=== PATIENT | male | born 1940 | race Caucasian/White ===

== ENCOUNTER 2017-08-10 10:18 | Inpatient (IN) | payer MEDICARE ==
[2017-08-10] MEDS ORDERED: Atropine Sulfate 1 mg/10 ml Syringe ONE ×3 (10:25→10:49)
--- NOTE | 2017-08-10 10:44 | RAD ---
PORTABLE CHEST 1 VIEW: Date: 08/10/17 Time: 1035 hours HISTORY: Chest pain and symptomatic bradycardia. FINDINGS: The heart size is normal. The aorta is tortuous. The lungs are well expanded without lobar consolidat ion, pneumothoraces, or pleural effusions. IMPRESSION: No acute process. POS: OFF
[2017-08-10 10:48] LABS: Hemoglobin 14.3 g/dL (14.0-18.0); Mean Corpuscular HGB CONC 32.1 g/dL (32.0-36.0); Mean Corpuscular Hemoglobin 31.5 pg (27.0-31.0); Mean Corpuscular Volume 97.9 fL (78.0-98.0); Mean Platelet Volume 8.2 fL (7.4-10.4); Platelet Count 271 thou/uL (130-400); RBC Distribution Width 13.3 % (11.5-14.5); Red Blood Cell (RBC) Count 4.55 mill/uL (4.70-6.10); White Blood Cell (WBC) Count 15.1 thou/uL (4.8-10.8)
[2017-08-10] MEDS ORDERED: DOPamine 400 MG/D5W 250 ML 250 ML ONE (11:05)
[2017-08-10 11:06] LABS: ALT (SGPT) 50 U/L (8-55); AST (SGOT) 28 U/L (5-34); Albumin 4.2 g/dL (3.4-4.8); Alkaline Phosphatase 51 U/L (40-150); Anion Gap 13 mmol/L (10-20); BUN (Urea Nitrogen) 65 mg/dL (8.4-25.7); Bilirubin, Total 0.6 mg/dL (0.2-1.2); CK (CPK) 32 U/L (30-200); Calc. Creatinine Clearance 0 mL/min (70-130); Calcium 10.7 mg/dL (7.8-10.44); Carbon Dioxide 23 mmol/L (23-31); Chloride 105 mmol/L (98-107); Estimated GFR-MDRD 19; Globulin 2.7 g/dL (2.4-3.5); Glucose 130 mg/dL (83-110); Lipase 49 U/L (8-78); Magnesium 2.2 mg/dL (1.6-2.6); Potassium 5.9 mmol/L (3.5-5.1); Protein, Total 6.9 g/dL (5.8-8.1); Sodium 135 mmol/L (136-145)
[2017-08-10 11:09] LABS: CKMB 1.8 ng/mL (0-6.6)
[2017-08-10 11:12] LABS: Burr Cells SLIGHT = 2-5 cells (100X) (0-1/hpf); Lymphocytes 52 % (21-51); MDiff Complete? YES; Monocytes 4 % (0-10); Neutrophil 42 % (42-75); PLT Morphology Comment Appears Adequate; Reactive Lymphocytes 1 % (0-10)
--- NOTE | 2017-08-10 12:10 | CON ---
DATE OF CONSULTATION: 08/10/2017 This is a critical care note, time will be 90 minutes. HISTORY OF PRESENT ILLNESS: The patient is a pleasant 77-year-old gentleman with a history of atrial fibrillation who presented with marked weakness. The patient states that previous about 6 years ago, he underwent a cardiac catheterization and found to have no significant coronary artery disease. He is followed by a cardiovascular lab director in [place], [place]. The patient most recently was diagnosed with atrial fibrillation. He was started on amiodarone. The patient also treated with Eliquis. The patient had recently noticed having increasing weakness and he was admitted for further evaluation. The patient denies have any loss of consciousness. The patient denies having any chest pain or dyspnea. PAST MEDICAL HISTORY: 1. Atrial fibrillation. 2. Diabetes mellitus. 3. Hypertension. 4. Chronic renal insufficiency. 5. History of pancreatic carcinoma. 6. Diabetes mellitus. PAST SURGICAL HISTORY: Whipple surgery, pancreatic surgery, and a tonsillectomy. SOCIAL HISTORY: He is a nonsmoker. FAMILY HISTORY: There is no strong family history of heart disease. ALLERGIES: No known drug allergies. MEDICATIONS: Eliquis 5 b.i.d., lisinopril 10 daily and half bedtime, Toprol 25 XL daily, simvastatin 20 at bedtime, alprazolam, Xanax 1 tablet p.o. p.r.n., metformin 500 mg b.i.d., and Imdur 30 q.a.m. REVIEW OF SYSTEMS: Ten-point system otherwise unremarkable. No history of easy bruising or bleeding. PHYSICAL EXAMINATION: GENERAL: This is a thin gentleman in no acute distress. VITAL SIGNS: His blood pressure was 140/70, heart rate was 40. NECK: Showed no jugular distention, no carotid bruits. LUNGS: Clear to auscultation. HEART: Regular rate and rhythm, normal S1, S2, no murmurs. ABDOMEN: Nondistended. EXTREMITIES: Showed trace edema. LABORATORY DATA AND IMAGING DATA: His white blood cell count 15.1, hemoglobin 14.3, hematocrit 46.6, and platelets are 271. Sodium is 135, potassium 5.9, chloride 105, bicarbonate 23, BUN 65, creatinine 3.16, glucose 130. Troponin was 0.02. His EKG revealed marked bradycardia with heart rate less than 40. IMPRESSION: 1. Symptomatic bradycardia. 2. Paroxysmal atrial fibrillation. 3. Hypertension. 4. Diabetes. 5. Chronic renal insufficiency. PLAN: This gentleman presents with marked bradycardia. We will ask EP to evaluate whether he should have placement of electronic pacemaker. The patient will be taken off his beta delaney and amiodarone. Further recommendations, we will follow. MALID
[2017-08-10] MEDS: Sodium Chloride 0.9% 1,000 ML IV SCH (13:35)
[2017-08-10] MEDS ORDERED: DOPamine 400 MG/D5W 250 ML 250 ML IVPB SCH (13:40)
[2017-08-10] MEDS ORDERED: Zolpidem Tartrate 5 MG TAB PO PRN (13:40)
[2017-08-10] MEDS ORDERED: Artificial Tear Sol 15 ML BOT EA EYE PRN (13:40)
[2017-08-10] MEDS ORDERED: hydrALAZINE 20 MG/ML VIAL SLOW IVP PRN ×2 (13:40→13:58)
[2017-08-10] MEDS ORDERED: Acetaminophen 325 MG TAB PO PRN (13:40)
[2017-08-10] MEDS ORDERED: Nitroglycerin 0.4 MG TAB (25 Tab Bottle) SL PRN (13:40)
[2017-08-10] MEDS ORDERED: Eucerin (Mineral Oil/Petrolatum,White) 30 gm Jar TOP PRN (13:40)
[2017-08-10] MEDS ORDERED: Diabetic Tussin 200 MG/10 ML UDCUP PO PRN (13:40)
[2017-08-10] MEDS ORDERED: Dextrose 50% Abboject 50 ML SYRINGE SLOW IVP PRN (13:40)
[2017-08-10] MEDS ORDERED: Dextrose 5% in Water 1,000 ML IV PRN (13:40)
[2017-08-10] MEDS ORDERED: Mag-Al 1200 mg/1200 mg/30 ML UDCUP PO PRN (13:40)
[2017-08-10] MEDS ORDERED: Ondansetron HCl/PF 4 MG/2 ML Vial IVP PRN (13:40)
[2017-08-10] MEDS ORDERED: HYDROcodone/Acetaminophen 5/325 mg Tablet PO PRN (13:40)
[2017-08-10] MEDS ORDERED: Loratadine 10 MG TAB PO PRN (13:40)
[2017-08-10] MEDS ORDERED: Chloraseptic Spray 180 ml Bottle PO PRN (13:40)
[2017-08-10] MEDS ORDERED: HumaLOG 300 UNITS/3 ML VIAL SC PRN ×2 (13:40)
[2017-08-10] MEDS ORDERED: Loperamide HCl 2 MG CAP PO PRN (13:40)
[2017-08-10] MEDS ORDERED: Senokot 8.6 MG TAB PO PRN (13:40)
[2017-08-10] MEDS ORDERED: Sodium Chloride 0.65% Nasal 44 ML BOT EA NARE PRN (13:40)
[2017-08-10 14:13] LABS: Troponin I Less than 0.010 ng/mL (< 0.028)
[2017-08-10] MEDS: hydrALAZINE 20 MG/ML VIAL SLOW IVP SCH ×2 (14:35→21:05)
--- NOTE | 2017-08-10 15:28 | ULT ---
RENAL SONOGRAM: HISTORY: Renal failure. FINDINGS: Right kidney is 10.9 cm with multiple cysts, measuring up to 1.8 cm near the inferior pole. No hydro nephrosis. Left kidney is 9.8 cm. Cyst at the inferior pole is exophytic, measuring 5.7 cm. Urinary bladder is incompletely distended. IMPRESSION: 1. No evidence of urinary tract obstruction. 2. Bilateral renal cysts. POS: [facility]
[2017-08-10 15:37] VITALS: BMI 22.7
--- NOTE | 2017-08-10 17:05 | PRG ---
DATE OF SERVICE: 08/10/2017 SUBJECTIVE: Mr. Brownlee is a 77-year-old male who presented to the hospital with weakness. He was fo und to be bradycardic. He is on amiodarone and Toprol for atrial fibrillation. He has been anticoag ulated with Eliquis. He has been admitted because of bradycardia. He was placed on dopamine in the emergency department. PAST MEDICAL HISTORY: Remarkable for atrial fibrillation, diabetes, hypertension, chronic kidney dis ease, and history of pancreas cancer. PAST MEDICAL HISTORY: He has had a Whipple procedure and tonsillectomy. SOCIAL HISTORY: He is nonsmoker and nondrinker. ALLERGIES: He has no drug allergies. FAMILY HISTORY: No family history of lung disease in early age. MEDICATIONS: Prior to admission he was on 10 lisinopril, 25 Toprol, 5 of Eliquis twice a day, simvas tatin 20 mg, metformin 500 mg twice a day and Imdur 30 mg a day, as well as amiodarone. REVIEW OF SYSTEMS: Ten-point review of systems is otherwise negative. PHYSICAL EXAMINATION: VITAL SIGNS: Blood pressure 161/63, heart rate 63, respiratory rate is 23, oximetry is 98%. HEENT: Pupils are equal. Sclerae is anicteric. He has skin tag on his right eyelid, he says it has been there for a long time. This does not have a malignant appearance. NECK: Supple. LUNGS: Clear. HEART: Regular rhythm. ABDOMEN: Soft. EXTREMITIES: Without asymmetry. LABORATORY DATA: White count 15.1, hemoglobin 14.3, platelets 271. Sodium 135, potassium 5.9, chlor yulia 105, bicarb 23, BUN 65, creatinine 3.16. We do not have any old renal lab for comparison. IMPRESSION: 1. Bradycardia. 2. Chronic kidney disease, most likely with borderline hyperkalemia. This will need to be monitored . 3. Hypercalcemia with calcium 10.7 and elevated parathyroid hormone. Nephrology will need to be consulted. An ultrasound has already been done which does not show anythi ng but bilateral renal cysts. There is no evidence of ureteral obstruction. He will remain in the Critical Care Unit for now. This is a 70-minute consult. Greater than 50% of the time was spent in coordinating care.
--- NOTE | 2017-08-10 17:09 | CON ---
ELECTROPHYSIOLOGY CONSULTATION DATE OF CONSULTATION: 08/10/2017 Paula Reeves, Nurse Practitioner dictating as scribe for Dr. Jefe Pretty. REFERRING PHYSICIAN: Ronan Quijano M.D. REASON FOR CONSULTATION: Symptomatic bradycardia. HISTORY OF PRESENT ILLNESS: Mr. Brownlee is a very pleasant 77-year-old gentleman who presents to the emergency room for marked weakness. He reports that he has been experiencing some shortness of breat h and weakness that has been progressive over the past few weeks. He was recently diagnosed with atr ial fibrillation in 02/2017 and was started on amiodarone and Eliquis by a corporate safety director in [place], [place]. He denies any bleeding problems while on Eliquis and feels he has been tolerating the amioda kerline without complication. He does have fairly complicated past medical history. He has been on low dose beta delaney for years. He denies any passing out or near passing out despite his progressive weakness. He denies any heart racing, chest pain, pressure, stroke or stroke-like symptoms. He has had occasional palpitations that are brief and fairly infrequent. He has been admitted on a dopamine drip while further evaluation is completed. His is at bedside during the exam. Currently, he feels well and does not have any cardiac concerns or complaints. He does report that his blood press ure was low when he arrived in the emergency room since his blood pressure has come up. He feels sig nificantly better. The patient reports having Multaq left heart catheterization approximately 6 years ago, but no interv ention was performed and has been medically managed. REVIEW OF SYSTEMS: Twelve point review of systems was conducted and is unremarkable except that list ed above in the HPI. PAST MEDICAL HISTORY: 1. Atrial fibrillation diagnosed in 02/2017. 2. Diabetes mellitus. 3. Hypertension. 4. Chronic renal insufficiency. 5. Renal cysts, bilateral. 6. History of pancreatic cancer in 2007, now in remission. PAST SURGICAL HISTORY: 1. Whipple Surgery. 2. Pancreatic surgery. 3. Tonsillectomy. SOCIAL HISTORY: Negative for tobacco or illicit drugs, , lives with his spouse. FAMILY HISTORY: Negative for early onset coronary artery disease or sudden cardiac . ALLERGIES: No known allergies. HOME MEDICATIONS: Include Eliquis 5 mg b.i.d., lisinopril 10 mg q.a.m. and 5 mg q.p.m., Toprol-XL 25 mg daily, simvastatin 10 mg at bedtime, alprazolam 1 mg p.o. as needed, metformin 500 mg b.i.d., and Imdur 30 mg q.a.m. PHYSICAL EXAMINATION: VITAL SIGNS: Most recent blood pressure 160/87, heart rate is 47, afebrile, oxygen saturation 99% on room air, and respirations are 14. GENERAL: This is a well-groomed, well-appearing gentleman in no apparent distress. He is alert and oriented. His speech is clear and affect appropriate. HEENT: He is normocephalic, atraumatic. His sclerae are anicteric. Oral mucosa is moist and pink w ith adequate dentition. NECK: Supple without jugular venous distention. His thyroid is nonpalpable. LUNGS: Clear to auscultation bilaterally without wheezes, crackles or rhonchi. Respirations are lulu n and unlabored with good bilateral excursion. HEART: Rate is regularly regular but slow. PMI is nondisplaced. EXTREMITIES: Warm and dry to touch without clubbing, cyanosis or edema. ABDOMEN: Soft, nontender without palpable masses. There are positive bowel sounds noted throughout. Hepatojugular reflex is negative. NEUROLOGIC: Grossly intact. Cranial nerves II-XII and exam is nonfocal. Gait was not assessed. LABORATORY DATA: WBC 15.1, hemoglobin 14.3, hematocrit 44.3, and platelet count is 271. Chemistry: Sodium 135, potassium 5.9, BUN 65, creatinine 3.16, magnesium 2.2. BNP 136.9. Chest x-ray, no acut e cardiopulmonary processes. Telemetry and EKG reveals sinus bradycardia. IMPRESSION: 1. Symptomatic bradycardia in the setting of concurrent amiodarone and beta-delaney therapy. 2. Atrial fibrillation. 3. Elevated CHADS VASc score of 4 on the basis of advanced age, hypertension, and diabetes, currentl y on Eliquis. 4. Chronic kidney disease and hyperkalemia. RECOMMENDATIONS: Discussion was had with Kem and his regarding his symptomatic bradycardia a nd hypertension. He is currently on low dose dopamine drips that is infusing between 3 and 5 mcg. T here is some issue with hypertension while on the dopamine drip. At this point, he is asymptomatic a nd his heart rates sustaining in the 40s. Once he remains asymptomatic, this is certainly reasonable without causing further hypertension. We recommend p.r.n. hydralazine use for hypertension while on dopamine. Regarding his bradycardia, his amiodarone was started in February according to the patient and his . He is now experiencing symptomatic bradycardia. We stopped the amiodarone and his be ta blockers. We will continue to monitor over the weekend and allowed his medications to wash out. If he continues to have symptomatic episodes or issues with bradycardia over the weekend, a permanent pacemaker may be indicated. Unfortunately, he does not have many options for antiarrhythmic therapy given his past medical history. Multaq had been considered in the past, but financially was not fea sible. We discussed coming off amiodarone and the likelihood of recurrence of his arrhythmias. He w ill likely require continued amiodarone therapy and therefore a permanent pacemaker maybe needed to p revent recurrent bradycardia episodes. Alternatively a lower dose of amiodarone may be effective sup pressing his arrhythmias and likely without his metoprolol. We will keep him n.p.o. on Sunday for po ssible dual chamber pacemaker implant. All questions were answered. The risks associated with the p acemaker include pain, swelling, bruising, infection, damage to the lung, damage to the heart and pos sible need for invasive CV Surgery. The patient and his voiced understanding and agree with the current plan of care. Thank you for allowing us to participate in the care of this patient.
[2017-08-10 17:15] LABS: Troponin I Less than 0.010 ng/mL (< 0.028)
[2017-08-10 17:25] LABS: Anion Gap 12 mmol/L (10-20); BUN (Urea Nitrogen) 63 mg/dL (8.4-25.7); Calc. Creatinine Clearance 22 mL/min (70-130); Calcium 10.4 mg/dL (7.8-10.44); Carbon Dioxide 22 mmol/L (23-31); Chloride 105 mmol/L (98-107); Estimated GFR-MDRD 21; Glucose 214 mg/dL (83-110); Potassium 5.3 mmol/L (3.5-5.1); Sodium 134 mmol/L (136-145)
--- NOTE | 2017-08-10 18:52 | HP ---
PRIMARY CARE PHYSICIAN: Dr. Ledbetter. REASON FOR ADMISSION: Symptomatic bradycardia, hyperkalemia, acute/chronic kidney failure. HISTORY OF PRESENT ILLNESS: A 77-year-old male who was sent to the emergency room by primary care physician for chest pain. Patient reports that for last 2- 3 weeks, he was intermittently feeling dizziness, lightheadedness, and shortness of breath on exertion. He was also experiencing randomly chest pain. He had a couple of times chest pain on exertion. Yesterday, he was feeling pressure sensation in his chest along with palpitation, dizziness, and chest pain subsequently subsided. The patient brought new blood pressure medicine and they checked vitals and they found pulse was low and that is why they made appointment with primary care physician and at primary care physician's office, the patient's pulse was very low and that is why he was advised to go to the emergency room. Patient was feeling dizzy, weak, fatigue and when primary care physician checked his pulse at that time it was 35 and when he arrived to emergency room, his pulse was in 20s. He was given atropine and subsequently dopamine drip and his heart rate improved from 60 to 70s. His blood pressure remained stable. He never had any syncopal episode or loss of consciousness. He never had any fall. Patient has history of heart problem. He is following synthetic resin operator in [place]. As per report, the patient is taking Eliquis, metoprolol and amiodarone. He had several cardiac catheterizations and stent placed. He also has underlying history of pancreatic cancer. He denies any smoking. He denies any alcohol abuse. He denies any other illicit drug abuse. He reports constipation, but he denies any melena, hematochezia. He denies any UTI symptoms. He denies any headache or focal motor or sensory symptoms. Dr. Quijano, synthetic resin operator evaluated this patient in the emergency room, the patient got echocardiography in the ER and subsequently Dr. Quijano advised to admit this patient in CCU. PAST MEDICAL HISTORY: Diabetes type 2, hypertension, chronic kidney disease, baseline status not known, history of cyst on kidney, pancreatic cancer, coronary artery disease, chronic anticoagulation, unspecified arrhythmia. PAST SURGICAL HISTORY: Pancreatic cancer surgery, tonsillectomy, cardiac catheterization with stent placement. PAST PSYCHIATRIC HISTORY: Anxiety and depression. SOCIAL HISTORY: Patient is . He drinks few beers per day. He denies any smoking. He denies any other illicit drug abuse. FAMILY HISTORY: No strong family history of premature coronary artery disease, stroke or cancer. ALLERGIES: No known drug allergy. CURRENT HOME MEDICATIONS: Toprol XL 25 mg p.o. daily, metformin b.i.d., Eliquis 5 mg p.o. b.i.d., amiodarone daily. EMERGENCY ROOM COURSE: Patient is given dopamine drip, atropine 0.5 mg x2. REVIEW OF SYSTEMS: The following complete review of systems was negative, unless otherwise mentioned in the HPI or below: Constitutional: Weight loss or gain, ability to conduct usual activities. Skin: Rash, itching. Eyes: Double vision, pain. ENT/Mouth: Nose bleeding, neck stiffness, pain, tenderness. Cardiovascular: Palpitations, dyspnea on exertion, orthopnea. Respiratory: Shortness of breath, wheezing, cough, hemoptysis, fever or night sweats. Gastrointestinal: Poor appetite, abdominal pain, heartburn, nausea, vomiting, constipation, or diarrhea. Genitourinary: Urgency, frequency, dysuria, nocturia. Musculoskeletal: Pain, swelling. Neurologic/Psychiatric: Anxiety, depression. Allergy/Immunologic: Skin rash, bleeding tendency. Please see my HPI for pertinent positive and negative. All other review of systems reviewed and negative except as mentioned in the HPI. PHYSICAL EXAMINATION: VITAL SIGNS: At this point, blood pressure 143/54, pulse 67, respiratory rate 14, temperature 97.5, saturation 99% on room air, lowest pulse was recorded 28. GENERAL: Patient is currently alert, awake, no obvious acute distress. HEENT: Head: Normocephalic, atraumatic. Eyes: Pupils round, reactive to light. Extraocular muscle intact. ENT: Oropharynx within normal limits. Moist mucous membranes. No oral lesion, no pharyngeal erythema, no exudate. NECK: Supple, no JVD, no thyromegaly, no carotid bruit, no jugular venous distention. LUNGS: Clear to auscultation without any rhonchi or rales. CARDIAC: Currently S1, S2 regular. No murmur, no gallop, no rub. ABDOMEN: Soft, bowel sounds present, nontender, nondistended. No organomegaly , no mass, no suprapubic tenderness. BACK: Unremarkable, no CVA tenderness. EXTREMITIES: Upper extremity, passive movement of all joints are normal. Lower extremity, no edema. Good peripheral pulsation. SKIN: No skin rash. HEMATOLOGICAL: No lymphadenopathy. PSYCHIATRIC: Normal affect. SIGNIFICANT LABORATORY DATA AND IMAGING: Chest x-ray based on my review, no acute cardiopulmonary process. CBC: WBC 15.1, hemoglobin 14.3, platelet 271. BMP: Sodium 135, potassium 5.9, chloride 105, carbon dioxide 23, anion gap 13, BUN 65, creatinine 3.16, glucose 130, calcium 10.7, magnesium 2.2. LFT: AST 28 , ALT 50, alkaline phosphatase 51, albumin 4.2, lipase 49, CK-MB 1.8, troponin I 0.022, BNP 136.9. ASSESSMENT AND PLAN: 1. Symptomatic bradycardia. Patient's pulse was 35 at primary care physician' s office, 28 at emergency room. He required atropine 0.5 mg x2 and dopamine drip, most likely related with his home medication Toprol and amiodarone, associated sinus node dysfunction cannot be entirely excluded, but at this point we will wait for medication to clear up and we will closely monitor in CCU and we will continue dopamine drip. Cardiology will be consulted. Echocardiography obtained and we will follow up on that result. Cardiac enzymes will be done to rule out acute coronary syndrome. 2. Hyperkalemia, likely related with renal insufficiency. We will give him Kayexalate one dose, calcium chloride, sodium bicarbonate and glucose insulin as a cocktail treatment for hyperkalemia. 3. Acute/chronic kidney failure. We will obtain renal ultrasound. We will check urine sodium, urine creatinine, and protein. We will consult Nephrology. We will avoid nephrotoxin agent. 4. Chronic anticoagulation with Eliquis. At this point, because of renal insufficiency, we will reduce the dose of Eliquis. We will check PT/INR. 5. Hypertension. We will use hydralazine on p.r.n. basis. We will hold on Toprol-XL, instead we will control his blood pressure with Procardia-XL 30 mg p.o. daily. We will monitor hemodynamics closely. 6. Elevated BNP. We will obtain echocardiography to assess ejection fraction and other structural abnormality. 7. Deep venous thrombosis prophylaxis, heparin 5000 units subcu twice daily. 8. Gastrointestinal prophylaxis, Protonix 40 mg p.o. daily. 9. Diabetes type 2. We will continue with insulin as per sliding scale per protocol. Diabetic diet will be given. We will discontinue metformin because of renal insufficiency. CODE STATUS: The patient is FULL CODE. The patient's is surrogate decision maker. Disposition plan based on clinical course. We are expecting patient's stay in hospital more than 2 midnights. Plan of care discussed with the patient and family member. ACE
--- NOTE | 2017-08-10 19:29 | CON ---
DATE OF CONSULTATION: 08/10/2017 NEPHROLOGY CONSULTATION REASON FOR CONSULTATION: Elevated creatinine. HISTORY OF PRESENT ILLNESS: This is a very pleasant 77-year-old gentleman who presented from the Car diology office after he was hypotensive and bradycardic. The patient's creatinine had increased to 3 .1 from a prior baseline in the ones. The patient denied no headache, numbness, tingling or weakness or chest pain at this time. The patient was also noted to have a potassium of 5.9. PAST MEDICAL HISTORY: Atrial fibrillation, diabetes mellitus, hypertension, CKD, bilateral renal cys t, pancreatic cancer. PAST SURGICAL HISTORY: Significant for Whipple surgery, pancreatic surgery, tonsillectomy. SOCIAL HISTORY: No alcohol or drug use. FAMILY HISTORY: Reviewed. ALLERGIES: Reviewed. HOME MEDICATIONS: Reviewed. HOSPITAL MEDICATIONS: Reviewed. PHYSICAL EXAMINATION: GENERAL: Patient is awake, alert. VITAL SIGNS: Afebrile, pulse 77, breathing 16, blood pressure 160/87. OBJECTIVE: See above. HEAD/NECK: Normocephalic. Atraumatic. EYES: EOMI. No deformity. EARS: Clear. No ulcers. NOSE: Intact. No lesions. MOUTH: Clear. No discharge. THROAT: Clear. No exudate. LUNGS: Clear. No crackles. CARDIAC: S1, S2. No rub. ABDOMEN: Benign. BS+. GENITALIA/RECTUM: Junior absent. BACK/EXTREMITIES: Edema 0+ Ulcer- NEUROLOGICAL: Alert and motor intact. SKIN: Rash- Bruise- LYMPHATICS: Edema- Ulcer- LABORATORY DATA: Show potassium 5.3. ASSESSMENT AND RECOMMENDATIONS: 1. Acute kidney injury with chronic kidney disease, most likely due to decreased effective arterial blood volume. Continue hydration. 2. Anemia, stable. 3. Hyperkalemia. Stop lisinopril and agree with hydration. No urgent indication for dialysis. We will hydrate the patient gently and follow renal function closely. Risks versus benefits of treatmen t were discussed. I will follow the renal imaging.
[2017-08-10 20:15] LABS: Bilirubin Negative (Negative); Blood, Urine Negative (Negative); Clarity CLEAR (Clear); Glucose, Urine (Dipstick) 250 mg/dL (Negative); Leukocyte Negative (Negative); Nitrite Negative (Negative); Protein, Urine (Dipstick) Negative (Neg-Trace); Specific Gravity, Urine 1.015 (1.002-1.036); Urobilinogen 0.2 mg/dL (0.2-1.0)
[2017-08-10 20:20] LABS: Bacteria/HPF None Seen HPF (None Seen); Hyaline Casts/LPF 0-3 HYALINE CAST LPF (0-3 Hyaline); Pathc Cast-AUWi Flag 0.29 (0-2.49); RBC/HPF 0-3 HPF (0-3); Squamous Epithelial None Seen HPF (0-3); WBC/HPF None Seen HPF (0-3)
[2017-08-10] MEDS: Heparin 5,000 UNITS/ML VIAL SC SCH (21:05)
[2017-08-10] MEDS: Ondansetron ODT 4 MG TAB PO PRN (21:19)
[2017-08-10 23:08] LABS: Creatinine, Urine 82.87 mg/dL (63-166)
[2017-08-11 05:32] LABS: ALT (SGPT) 41 U/L (8-55); AST (SGOT) 23 U/L (5-34); Alkaline Phosphatase 55 U/L (40-150); Anion Gap 15 mmol/L (10-20); BUN (Urea Nitrogen) 60 mg/dL (8.4-25.7); Bilirubin, Total 0.6 mg/dL (0.2-1.2); Calc. Creatinine Clearance 26 mL/min (70-130); Calcium 10.3 mg/dL (7.8-10.44); Carbon Dioxide 18 mmol/L (23-31); Cardiac Risk 3.8 (Less than 4.5); Chloride 107 mmol/L (98-107); Cholesterol 162 mg/dl (< 200 Desired); Estimated GFR-MDRD 26; Globulin 2.7 g/dL (2.4-3.5); Glucose 177 mg/dL (83-110); HDL Cholesterol 43 mg/dL (>60 Neg Risk); LDL Cholesterol, Calculated 87 mg/dL; Potassium 5.7 mmol/L (3.5-5.1); Protein, Total 6.7 g/dL (5.8-8.1); Sodium 134 mmol/L (136-145); Triglycerides 162 mg/dL (Less than 150)
[2017-08-11 06:14] LABS: #Basophils 0.3 thou/uL (0.0-0.2); #Eosinphils 0.1 thou/uL (0.0-0.7); #Lymphocytes 3.5 thou/uL (1.20-3.40); #Monocytes 1.1 thou/uL (0.11-0.59); %Basophils 1.6 % (0.0-1.0); %Eosinophils 0.4 % (0.0-10.0); %Lymphocytes 20.7 % (21.0-51.0); %Monocytes 6.5 % (0.0-10.0); %Neutrophils 70.9 % (42.0-75.0); Acanthocytes SLIGHT = 1-5 cells (100X) (None Seen); Hemoglobin 14.7 g/dL (14.0-18.0); MDiff Complete? YES; Mean Corpuscular HGB CONC 31.5 g/dL (32.0-36.0); Mean Corpuscular Hemoglobin 30.2 pg (27.0-31.0); Mean Platelet Volume 8.6 fL (7.4-10.4); PLT Morphology Comment Appears Adequate; Platelet Count 284 thou/uL (130-400); RBC Distribution Width 13.3 % (11.5-14.5); Red Blood Cell (RBC) Count 4.88 mill/uL (4.70-6.10)
[2017-08-11] MEDS: Sodium Chloride 0.9% 1,000 ML IV SCH ×3 (06:19→23:00)
[2017-08-11] MEDS: Ondansetron ODT 4 MG TAB PO PRN (08:34)
[2017-08-11] MEDS: Heparin 5,000 UNITS/ML VIAL SC SCH ×2 (08:34→21:54)
[2017-08-11] MEDS: hydrALAZINE 20 MG/ML VIAL SLOW IVP SCH (09:42)
[2017-08-11] MEDS ORDERED: Sodium Bicarb 50 MEQ/50 ML Abboject 8.4% SYRINGE IVP SCH (10:45)
[2017-08-11] MEDS ORDERED: Isoproterenol 2 MG in Dextrose 5% in Water 500 ML IVPB SCH (12:15)
--- NOTE | 2017-08-11 12:29 | PDOC.PN ---
- Subjective Encounter Start Date: 08/11/17 Encounter Start Time: 09:40 Patient seen and examined. No new complaints. No overnight events - Objective Resuscitation Status: Resuscitation Status FULL:Full Resuscitation MAR Reviewed: Yes Vital Signs & Weight: Vital Signs (12 hours) Temp Pulse Resp Pulse Ox 08/11/17 09:42 47 L 08/11/17 08:00 98.4 F 47 L 12 97 08/11/17 06:02 97 08/11/17 04:00 98.6 F Weight Weight 158 lb 4.67 oz Most Recent Monitor Data Heart Rate from ECG 46 NIBP 159/59 NIBP BP-Mean 104 Respiration from ECG 7 SpO2 96 I&O: 08/10/17 08/11/17 08/12/17 06:59 06:59 06:59 Intake Total 1699 Output Total 1000 Balance 699 Result Diagrams: 08/11/17 04:36 08/11/17 04:36 Additional Labs: Accuchecks 08/11/17 08/11/17 08/10/17 11:59 08:40 21:06 POC Glucose 165 H 147 H 173 H 08/10/17 16:30 POC Glucose 185 H Radiology Reviewed by me: Yes (echo - normal) EKG Reviewed by me: Yes (bradycardia) Phys Exam - Physical Examination Constitutional: NAD HEENT: PERRLA, moist MMs, sclera anicteric Neck: no JVD, supple Respiratory: no wheezing, no rales, no rhonchi Cardiovascular: RRR, no significant murmur, no rub Gastrointestinal: soft, non-tender, no distention, positive bowel sounds Musculoskeletal: no edema, pulses present Neurological: non-focal, normal sensation Lymphatic: no nodes Psychiatric: normal affect, A&O x 3 Skin: no rash, normal turgor Dx/Plan (1) Symptomatic bradycardia Code(s): R00.1 - BRADYCARDIA, UNSPECIFIED Status: Acute (2) Hyperkalemia Code(s): E87.5 - HYPERKALEMIA Status: Acute (3) Acute on chronic kidney failure Code(s): N17.9 - ACUTE KIDNEY FAILURE, UNSPECIFIED; N18.9 - CHRONIC KIDNEY DISEASE, UNSPECIFIED Status: Acute Qualifiers: Chronic kidney disease stage: unspecified stage (4) Hypertension Code(s): I10 - ESSENTIAL (PRIMARY) HYPERTENSION Status: Chronic (5) Paroxysmal atrial fibrillation Code(s): I48.0 - PAROXYSMAL ATRIAL FIBRILLATION Status: Chronic (6) Diabetes type 2, controlled Code(s): E11.9 - TYPE 2 DIABETES MELLITUS WITHOUT COMPLICATIONS Status: Chronic (7) Chronic anticoagulation Code(s): Z79.01 - PENITENTIARY (CURRENT) USE OF ANTICOAGULANTS Status: Chronic - Plan cont current plan of care * will give one dose of kayexalate * nephrology following, sodium bicarbonate given * monitor renal function * medication reviewed as below * symptomatic treatment * cardiology following * continue dopamin drip * add miralax. Review of Systems - Review of Systems Eyes: negative: Pain, Vision Change, Conjunctivae Inflammation, Eyelid Inflammation, Redness, Other ENT: negative: Ear Pain, Ear Discharge, Nose Pain, Nose Discharge, Nose Congestion, Mouth Pain, Mouth Swelling, Throat Pain, Throat Swelling, Other Respiratory: negative: Cough, Dry, Shortness of Breath, Hemoptysis, SOB with Excertion, Pleuritic Pain, Sputum, Wheezing Cardiovascular: negative: chest pain, palpitations, orthopnea, paroxysmal nocturnal dyspnea, edema, light headedness, other Gastrointestinal: negative: Nausea, Vomiting, Abdominal Pain, Diarrhea, Constipation, Melena, Hematochezia, Other Genitourinary: negative: Dysuria, Frequency, Incontinence, Hematuria, Retention , Other Musculoskeletal: negative: Neck Pain, Shoulder Pain, Arm Pain, Back Pain, Hand Pain, Leg Pain, Foot Pain, Other Skin: negative: Rash, Lesions, Adam, Bruising, Other - Medications/Allergies Allergies/Adverse Reactions: Allergies Allergy/AdvReac Type Severity Reaction Status Date / Time No Known Allergies Allergy Verified 08/10/17 15:59 Medications: Current Medications Acetaminophen (Tylenol) 650 mg PO Q4H PRN PRN Reason: Headache/Fever or Pain Hydrocodone Bitart/Acetaminophen ([place] 5/325) 1 tab PO Q4H PRN PRN Reason: Moderate Pain (4-6) Al Hydroxide/Mg Hydroxide (Maalox) 30 ml PO Q6H PRN PRN Reason: Heartburn or Indigestion Artificial Tears (Tears Renewed 15ml Bottle) 0 drop EA EYE PRN PRN PRN Reason: Dry Eyes Aspirin (Aspirin Chewable) 81 mg PO DAILY [facility] Last Admin: 08/11/17 08:34 Dose: 81 mg Dextrose/Water (Dextrose 50%) 25 gm SLOW IVP PRN PRN PRN Reason: Hypoglycemia Glucagon (Glucagon) 1 mg IM PRN PRN PRN Reason: Hypoglycemia Guaifenesin (Robitussin Sf) 200 mg PO Q4H PRN PRN Reason: Cough Heparin Sodium (Porcine) (Heparin) 5,000 units SC BID [facility] Last Admin: 08/11/17 08:34 Dose: 5,000 units Hydralazine HCl (Apresoline) 10 mg SLOW IVP Q4H PRN PRN Reason: Systolic BP > 180 Dextrose/Water (D5w) 1,000 mls @ 0 mls/hr IV .Q0M PRN; As Directed PRN Reason: Hypoglycemia Dopamine HCl/Dextrose (Dopamine/D5w) 250 mls @ 0 mls/hr IVPB INF [facility]; Titrate PRN Reason: Protocol Last Admin: 08/11/17 06:59 Dose: 250 mls Sodium Chloride (Normal Saline 0.9%) 1,000 mls @ 75 mls/hr IV .[id number] [facility] Last Admin: 08/11/17 06:19 Dose: 1,000 mls Isoproterenol HCl 2 mg/ (Dextrose/Water) 510 mls @ 0 mls/hr IVPB INF [facility]; Titrate PRN Reason: Protocol Insulin Human Lispro (Humalog) 0 units SC .MODERATE SLIDING SC PRN PRN Reason: Moderate Correctional Scale Insulin Human Lispro (Humalog) 0 units SC .BEDTIME SLIDING SC PRN PRN Reason: Bedtime Correctional Scale Loperamide HCl (Imodium) 2 mg PO PRN PRN PRN Reason: Diarrhea/Loose Stools Loratadine (Claritin) 10 mg PO DAILYPRN PRN PRN Reason: Sinus Symptoms Magnesium Hydroxide (Milk Of Magnesium) 30 ml PO DAILYPRN PRN PRN Reason: Constipation Mineral Oil/White Petrolatum (Eucerin Cream) 0 gm TOP BIDPRN PRN PRN Reason: Dry Skin Nitroglycerin (Nitrostat) 0.4 mg SL Q5MIN PRN PRN Reason: Chest Pain Ondansetron HCl (Zofran Odt) 4 mg PO Q6H PRN PRN Reason: Nausea/Vomiting Last Admin: 08/11/17 08:34 Dose: 4 mg Ondansetron HCl (Zofran) 4 mg IVP Q6H PRN PRN Reason: Nausea/Vomiting Last Admin: 08/10/17 15:40 Dose: 4 mg Pantoprazole Sodium (Protonix) 40 mg PO DAILY [facility] Last Admin: 08/11/17 08:34 Dose: 40 mg Phenol (Chloraseptic [place] 180 Ml Bot) 0 ml PO PRN PRN PRN Reason: Sore Throat Senna (Senokot) 2 tab PO HSPRN PRN PRN Reason: Constipation Sodium Bicarbonate (Bicarbonate, Sodium) 50 meq IVP NOW [facility] Stop: 08/11/17 12:45 Last Admin: 08/11/17 10:53 Dose: 50 meq Sodium Chloride ([place] Nasal [place] 0.65%) 0 ml EA NARE QIDPRN PRN PRN Reason: Nasal Congestion Sodium Polystyrene Sulfonate (Kayexelate Oral Susp 15 Gm/60 Ml) 30 gm PO NOW [facility] Stop: 08/11/17 12:45 Last Admin: 08/11/17 10:54 Dose: 30 mg Zolpidem Tartrate (Ambien) 5 mg PO HSPRN PRN PRN Reason: Insomnia
--- NOTE | 2017-08-11 12:32 | PRG ---
DATE OF SERVICE: 08/11/2017 SUBJECTIVE: A 77-year-old gentleman being seen for acute kidney injury and hyperkalemia. The patien t denies any nausea, vomiting or chest pain. The patient is making urine on his own. PHYSICAL EXAMINATION: GENERAL: Patient is resting. VITAL SIGNS: Afebrile, pulse 47, breathing at 16, blood pressure 159/59. HEAD/NECK: Normocephalic. Atraumatic. EYES: EOMI. No deformity. EARS: Clear. No ulcers. NOSE: Intact. No lesions. MOUTH: Clear. No discharge. THROAT: Clear. No exudate. LUNGS: Clear. No crackles. CARDIAC: S1, S2. No rub. ABDOMEN: Benign. BS+. GENITALIA/RECTUM: Junior absent. BACK/EXTREMITIES: Edema 0+ Ulcer- NEUROLOGICAL: Alert and motor intact. SKIN: Rash- Bruise- LYMPHATICS: Edema- Ulcer- LABORATORY DATA: Show hemoglobin 14.7, potassium was 5.7, bicarbonate 18. ASSESSMENT AND RECOMMENDATIONS: 1. Acute kidney injury with chronic kidney disease, improving. 2. Hyperkalemia worsen. We will start the patient on bicarbonate. 3. Metabolic acidosis. Start sodium bicarbonate. 4. Hyponatremia, stable. No urgent indication for dialysis. The patient remains nonoliguric.
[2017-08-11 12:40] LABS: Anion Gap 14 mmol/L (10-20); BUN (Urea Nitrogen) 56 mg/dL (8.4-25.7); Calc. Creatinine Clearance 28 mL/min (70-130); Calcium 10.2 mg/dL (7.8-10.44); Carbon Dioxide 21 mmol/L (23-31); Chloride 106 mmol/L (98-107); Estimated GFR-MDRD 28; Glucose 192 mg/dL (83-110); Potassium 5.2 mmol/L (3.5-5.1); Sodium 136 mmol/L (136-145)
--- NOTE | 2017-08-11 13:21 | PRG ---
DATE OF SERVICE: 08/11/2017 SUBJECTIVE: Mr. Brownlee noticed that he is developing numbness in his right upper extremity digits. His right upper extremity digits are now pale and cool. OBJECTIVE: VITAL SIGNS: His heart rates in the 40s, blood pressure 159/59, respiratory rate 7. LUNGS: Clear. HEART: Regular rhythm. ABDOMEN: Soft and nontender. EXTREMITIES: No clubbing, cyanosis or edema. LABORATORY DATA: White count 17.0, hemoglobin 14.7, platelets 284. Sodium 134, potassium 5.7, chloride 107, bicarbonate 18, BUN 16, creatinine 2.39, glucose 177. IMAGING: Echocardiogram shows a normal ejection fraction. IMPRESSION: Symptomatic bradycardia. PLAN: Probably need to switch off the dopamine and use isoproterenol or aminophylline to see if this increases his heart rate. He has developed ischemic changes on his fingers on the right. I have di scussed this with Cardiology and they agree with the isoproterenol, so this will be started per sameer col. Critical care time was 30 minutes.
[2017-08-11 18:24] LABS: Potassium 4.3 mmol/L (3.5-5.1)
[2017-08-12] MEDS ORDERED: Bisacodyl 10 MG SUPP PR PRN (08:29)
[2017-08-12] MEDS ORDERED: Fleet Enema 133 ML BOT PR SCH (09:00)
--- NOTE | 2017-08-12 09:23 | PDOC.PN ---
- Subjective Encounter Start Date: 08/12/17 Encounter Start Time: 08:30 pt is c/o constipation for 4-6 days, no abdominal pain, no fever - Objective Resuscitation Status: Resuscitation Status FULL:Full Resuscitation MAR Reviewed: Yes Vital Signs & Weight: Vital Signs (12 hours) Temp Pulse Resp Pulse Ox 08/12/17 08:00 98.1 F 61 20 96 Weight Weight 158 lb 4.67 oz Most Recent Monitor Data Heart Rate from ECG 64 NIBP 147/69 NIBP BP-Mean 85 Respiration from ECG 20 SpO2 98 I&O: 08/11/17 08/12/17 08/13/17 06:59 06:59 06:59 Intake Total 1699 3296.8 60 Output Total 1000 1800 Balance 699 1496.8 60 Result Diagrams: 08/11/17 04:36 08/11/17 18:04 Additional Labs: Accuchecks 08/12/17 08/11/17 08/11/17 06:54 21:02 15:44 POC Glucose 137 H 123 H 160 H 08/11/17 08/11/17 11:59 08:40 POC Glucose 165 H 147 H EKG Reviewed by me: Yes (nsr) Phys Exam - Physical Examination Constitutional: NAD HEENT: PERRLA, moist MMs, sclera anicteric Neck: no JVD, supple Respiratory: no wheezing, no rales, no rhonchi Cardiovascular: RRR, no significant murmur, no rub Gastrointestinal: soft, non-tender, no distention, positive bowel sounds Musculoskeletal: no edema, pulses present Neurological: non-focal, normal sensation, moves all 4 limbs Lymphatic: no nodes Psychiatric: normal affect, A&O x 3 Skin: no rash, normal turgor Dx/Plan (1) Symptomatic bradycardia Code(s): R00.1 - BRADYCARDIA, UNSPECIFIED Status: Acute (2) Hyperkalemia Code(s): E87.5 - HYPERKALEMIA Status: Resolved (3) Acute on chronic kidney failure Code(s): N17.9 - ACUTE KIDNEY FAILURE, UNSPECIFIED; N18.9 - CHRONIC KIDNEY DISEASE, UNSPECIFIED Status: Acute Qualifiers: Chronic kidney disease stage: unspecified stage (4) Hypertension Code(s): I10 - ESSENTIAL (PRIMARY) HYPERTENSION Status: Chronic (5) Paroxysmal atrial fibrillation Code(s): I48.0 - PAROXYSMAL ATRIAL FIBRILLATION Status: Chronic (6) Diabetes type 2, controlled Code(s): E11.9 - TYPE 2 DIABETES MELLITUS WITHOUT COMPLICATIONS Status: Chronic (7) Chronic anticoagulation Code(s): Z79.01 - P[employer] (CURRENT) USE OF ANTICOAGULANTS Status: Chronic (8) Constipation Code(s): K59.00 - CONSTIPATION, UNSPECIFIED Status: Acute - Plan cont current plan of care * will give fleet enema for constipation * he is on isoprotenerol drip for bradycardia, now his heart rate is controlled * will monitor in CCU and monitor * pacemaker decision as per cardiology * medication reviewed as below * symptomatic treatment. * now reduce IVF to KVO Review of Systems - Review of Systems Constitutional: negative: fever, chills, sweats, weakness, malaise, other Eyes: negative: Pain, Vision Change, Conjunctivae Inflammation, Eyelid Inflammation, Redness, Other ENT: negative: Ear Pain, Ear Discharge, Nose Pain, Nose Discharge, Nose Congestion, Mouth Pain, Mouth Swelling, Throat Pain, Throat Swelling, Other Respiratory: negative: Cough, Dry, Shortness of Breath, Hemoptysis, SOB with Excertion, Pleuritic Pain, Sputum, Wheezing Cardiovascular: negative: chest pain, palpitations, orthopnea, paroxysmal nocturnal dyspnea, edema, light headedness, other Gastrointestinal: Constipation. negative: Nausea, Vomiting, Abdominal Pain, Diarrhea, Melena, Hematochezia, Other Genitourinary: negative: Dysuria, Frequency, Incontinence, Hematuria, Retention , Other Musculoskeletal: negative: Neck Pain, Shoulder Pain, Arm Pain, Back Pain, Hand Pain, Leg Pain, Foot Pain, Other Skin: negative: Rash, Lesions, Adam, Bruising, Other - Medications/Allergies Allergies/Adverse Reactions: Allergies Allergy/AdvReac Type Severity Reaction Status Date / Time No Known Allergies Allergy Verified 08/10/17 15:59 Medications: Current Medications Acetaminophen (Tylenol) 650 mg PO Q4H PRN PRN Reason: Headache/Fever or Pain Hydrocodone Bitart/Acetaminophen ([place] 5/325) 1 tab PO Q4H PRN PRN Reason: Moderate Pain (4-6) Al Hydroxide/Mg Hydroxide (Maalox) 30 ml PO Q6H PRN PRN Reason: Heartburn or Indigestion Artificial Tears (Tears Renewed 15ml Bottle) 0 drop EA EYE PRN PRN PRN Reason: Dry Eyes Aspirin (Aspirin Chewable) 81 mg PO DAILY [facility] Last Admin: 08/11/17 08:34 Dose: 81 mg Bisacodyl (Dulcolax) 10 mg [place] Q8H PRN PRN Reason: Constipation Dextrose/Water (Dextrose 50%) 25 gm SLOW IVP PRN PRN PRN Reason: Hypoglycemia Glucagon (Glucagon) 1 mg IM PRN PRN PRN Reason: Hypoglycemia Guaifenesin (Robitussin Sf) 200 mg PO Q4H PRN PRN Reason: Cough Heparin Sodium (Porcine) (Heparin) 5,000 units SC BID [facility] Last Admin: 08/11/17 21:54 Dose: 5,000 units Hydralazine HCl (Apresoline) 10 mg SLOW IVP Q4H PRN PRN Reason: Systolic BP > 180 Dextrose/Water (D5w) 1,000 mls @ 0 mls/hr IV .Q0M PRN; As Directed PRN Reason: Hypoglycemia Isoproterenol HCl 2 mg/ (Dextrose/Water) 510 mls @ 0 mls/hr IVPB INF [facility]; Titrate PRN Reason: Protocol Last Admin: 08/11/17 14:24 Dose: 510 mls Sodium Chloride (Normal Saline 0.9%) 1,000 mls @ 30 mls/hr IV .Q24H [facility] Insulin Human Lispro (Humalog) 0 units SC .MODERATE SLIDING SC PRN PRN Reason: Moderate Correctional Scale Last Admin: 08/11/17 15:47 Dose: 2 unit Insulin Human Lispro (Humalog) 0 units SC .BEDTIME SLIDING [place] PRN PRN Reason: Bedtime Correctional Scale Loperamide HCl (Imodium) 2 mg PO PRN PRN PRN Reason: Diarrhea/Loose Stools Loratadine (Claritin) 10 mg PO DAILYPRN PRN PRN Reason: Sinus Symptoms Magnesium Hydroxide (Milk Of Magnesium) 30 ml PO DAILYPRN PRN PRN Reason: Constipation Mineral Oil/White Petrolatum (Eucerin Cream) 0 gm TOP BIDPRN PRN PRN Reason: Dry Skin Nitroglycerin (Nitrostat) 0.4 mg SL Q5MIN PRN PRN Reason: Chest Pain Ondansetron HCl (Zofran Odt) 4 mg PO Q6H PRN PRN Reason: Nausea/Vomiting Last Admin: 08/11/17 08:34 Dose: 4 mg Ondansetron HCl (Zofran) 4 mg IVP Q6H PRN PRN Reason: Nausea/Vomiting Last Admin: 08/10/17 15:40 Dose: 4 mg Pantoprazole Sodium (Protonix) 40 mg PO DAILY [facility] Last Admin: 08/11/17 08:34 Dose: 40 mg Phenol (Chloraseptic [place] 180 Ml Bot) 0 ml PO PRN PRN PRN Reason: Sore Throat Polyethylene Glycol (Miralax) 17 gm PO DAILY [facility] Senna (Senokot) 2 tab PO HSPRN PRN PRN Reason: Constipation Sodium Biphosphate/Sodium Phosphate ([place]leet Enema) 133 ml OK NOW [facility] Stop: 08/12/17 11:00 Sodium Chloride ([place] Nasal [place] 0.65%) 0 ml EA NARE QIDPRN PRN PRN Reason: Nasal Congestion Zolpidem Tartrate (Ambien) 5 mg PO HSPRN PRN PRN Reason: Insomnia
[2017-08-12] MEDS: Sodium Chloride 0.9% 1,000 ML IV SCH (09:32)
[2017-08-12] MEDS: Polyethylene Glycol 3350 17 GM Packet PO SCH (09:33)
[2017-08-12] MEDS: Heparin 5,000 UNITS/ML VIAL SC SCH ×2 (09:33→20:57)
[2017-08-12] MEDS: Milk Of Magnesia 30 ML UDCUP PO PRN (09:33)
[2017-08-12 10:44] LABS: Anion Gap 14 mmol/L (10-20); BUN (Urea Nitrogen) 35 mg/dL (8.4-25.7); Calc. Creatinine Clearance 38 mL/min (70-130); Calcium 9.9 mg/dL (7.8-10.44); Carbon Dioxide 23 mmol/L (23-31); Chloride 106 mmol/L (98-107); Estimated GFR-MDRD 41; Glucose 151 mg/dL (83-110); Potassium 4.4 mmol/L (3.5-5.1); Sodium 139 mmol/L (136-145)
[2017-08-12] MEDS ORDERED: ALPRAZolam 0.25 MG TAB PO SCH (11:45)
--- NOTE | 2017-08-12 12:24 | PRG ---
DATE OF SERVICE: 08/12/2017 SUBJECTIVE: A 77-year-old male being seen for acute kidney injury. The patient denies any nausea, v omiting, or chest pain. OBJECTIVE: GENERAL: Patient is awake, alert. HEENT: Atraumatic, normocephalic. Oral mucosa is moist. NECK: Supple. CARDIOVASCULAR: S1 and S2 heard. Rate and rhythm regular. RESPIRATORY: Clear to auscultation. GASTROINTESTINAL: Abdomen is soft. MUSCULOSKELETAL: No tenderness. No edema. DERMATOLOGIC: No skin rash. NEUROLOGIC: Alert and awake and oriented x3. No focal neurologic deficits. Moving all the extremit ies. PSYCHIATRIC: Mood and affect normal. LABORATORY: Show hemoglobin 14.7. Creatinine 1.6. ASSESSMENT AND RECOMMENDATIONS: 1. Acute kidney injury, improved. 2. Hyperkalemia, improved. 3. Hypertension, stable. 4. Anemia, stable. 5. Medications based on glomerular filtration rate are appropriate. No indication for dialysis.
--- NOTE | 2017-08-12 19:12 | PRG ---
DATE OF SERVICE: 08/12/2017 SUBJECTIVE: Mr. Brownlee has no complaints. Still on isoproterenol, although the dose is lower. OBJECTIVE: VITAL SIGNS: The heart rates dip down into the 30s and 40s intermittently yesterday afternoon, but h as for the most part been in the 50s and 60s. Blood pressure is 157/73, heart rate is 54 currently, respiratory rate 15. LUNGS: Clear. HEART: Regular rhythm. ABDOMEN: Soft. LABORATORY DATA: White count 17, hemoglobin 14.7, platelets 284. Sodium 139, potassium 4.4, chlorid e 106, bicarb 23, BUN 35, creatinine 1.63. Creatinine was 2.24 yesterday. IMPRESSION: Bradycardia, ? tachybrady syndrome. PLAN: Await EP input. He will continue isoproterenol for now. He is in no distress. His symptoms in his fingers went away with discontinuation of the dopamine.
[2017-08-12] MEDS: ALPRAZolam 0.25 MG TAB PO SCH (20:57)
[2017-08-13 07:06] LABS: #Basophils 0.1 thou/uL (0.0-0.2); #Eosinphils 0.2 thou/uL (0.0-0.7); #Lymphocytes 5.5 thou/uL (1.20-3.40); #Monocytes 1.4 thou/uL (0.11-0.59); #Neutrophils 6.3 thou/uL (1.40-6.50); %Basophils 0.6 % (0.0-1.0); %Eosinophils 1.5 % (0.0-10.0); %Lymphocytes 40.6 % (21.0-51.0); %Monocytes 10.2 % (0.0-10.0); %Neutrophils 47.1 % (42.0-75.0); Hemoglobin 13.5 g/dL (14.0-18.0); Mean Corpuscular HGB CONC 32.3 g/dL (32.0-36.0); Mean Corpuscular Hemoglobin 31.6 pg (27.0-31.0); Mean Corpuscular Volume 97.6 fL (78.0-98.0); Platelet Count 249 thou/uL (130-400); RBC Distribution Width 13.1 % (11.5-14.5); Red Blood Cell (RBC) Count 4.29 mill/uL (4.70-6.10); White Blood Cell (WBC) Count 13.5 thou/uL (4.8-10.8)
[2017-08-13 07:23] LABS: Anion Gap 11 mmol/L (10-20); BUN (Urea Nitrogen) 26 mg/dL (8.4-25.7); Calc. Creatinine Clearance 46 mL/min (70-130); Calcium 9.9 mg/dL (7.8-10.44); Carbon Dioxide 24 mmol/L (23-31); Chloride 107 mmol/L (98-107); Estimated GFR-MDRD 52; Glucose 120 mg/dL (83-110); Potassium 4.4 mmol/L (3.5-5.1); Sodium 138 mmol/L (136-145)
[2017-08-13] MEDS: Polyethylene Glycol 3350 17 GM Packet PO SCH (07:59)
[2017-08-13] MEDS: ALPRAZolam 0.25 MG TAB PO SCH ×2 (09:23→20:11)
--- NOTE | 2017-08-13 10:23 | PDOC.PN ---
- Subjective Encounter Start Date: 08/13/17 Encounter Start Time: 08:50 Patient seen and examined. No new complaints. No overnight events he had good BM - Objective Resuscitation Status: Resuscitation Status FULL:Full Resuscitation MAR Reviewed: Yes Vital Signs & Weight: Weight Weight 158 lb 4.67 oz Most Recent Monitor Data Heart Rate from ECG 74 NIBP 156/61 NIBP BP-Mean 108 Respiration from ECG 11 SpO2 95 I&O: 08/12/17 08/13/17 08/14/17 06:59 06:59 06:59 Intake Total 3296.8 956.6 Output Total 1800 1900 Balance 1496.8 -943.4 Result Diagrams: 08/13/17 06:59 08/13/17 06:59 Additional Labs: Accuchecks 08/13/17 08/12/17 08/12/17 06:39 20:59 17:21 POC Glucose 133 H 142 H 113 H 08/12/17 11:36 POC Glucose 129 H EKG Reviewed by me: Yes (nsr) Phys Exam - Physical Examination Constitutional: NAD HEENT: PERRLA, moist MMs, sclera anicteric Neck: no JVD, supple Respiratory: no wheezing, no rales, no rhonchi Cardiovascular: RRR, no significant murmur, no rub Gastrointestinal: soft, non-tender, no distention, positive bowel sounds Musculoskeletal: no edema, pulses present Neurological: non-focal, normal sensation, moves all 4 limbs Psychiatric: normal affect, A&O x 3 Skin: no rash, normal turgor Dx/Plan (1) Symptomatic bradycardia Code(s): R00.1 - BRADYCARDIA, UNSPECIFIED Status: Acute (2) Hyperkalemia Code(s): E87.5 - HYPERKALEMIA Status: Resolved (3) Acute on chronic kidney failure Code(s): N17.9 - ACUTE KIDNEY FAILURE, UNSPECIFIED; N18.9 - CHRONIC KIDNEY DISEASE, UNSPECIFIED Status: Acute Qualifiers: Chronic kidney disease stage: unspecified stage (4) Hypertension Code(s): I10 - ESSENTIAL (PRIMARY) HYPERTENSION Status: Chronic (5) Paroxysmal atrial fibrillation Code(s): I48.0 - PAROXYSMAL ATRIAL FIBRILLATION Status: Chronic (6) Diabetes type 2, controlled Code(s): E11.9 - TYPE 2 DIABETES MELLITUS WITHOUT COMPLICATIONS Status: Chronic (7) Chronic anticoagulation Code(s): Z79.01 - STEAM BOX HAND (CURRENT) USE OF ANTICOAGULANTS Status: Chronic (8) Constipation Code(s): K59.00 - CONSTIPATION, UNSPECIFIED Status: Acute - Plan cont current plan of care, plan discussed w/ family * his renal function continue to improve * he is off isoproterenol drip * monitor heart rate * transfer to [facility] today * seems like he will not need pacemaker * discussed with * medication reviewed as below * symptomatic treatment. Review of Systems - Review of Systems Eyes: negative: Pain, Vision Change, Conjunctivae Inflammation, Eyelid Inflammation, Redness, Other ENT: negative: Ear Pain, Ear Discharge, Nose Pain, Nose Discharge, Nose Congestion, Mouth Pain, Mouth Swelling, Throat Pain, Throat Swelling, Other Respiratory: negative: Cough, Dry, Shortness of Breath, Hemoptysis, SOB with Excertion, Pleuritic Pain, Sputum, Wheezing Cardiovascular: negative: chest pain, palpitations, orthopnea, paroxysmal nocturnal dyspnea, edema, light headedness, other Gastrointestinal: negative: Nausea, Vomiting, Abdominal Pain, Diarrhea, Constipation, Melena, Hematochezia, Other Genitourinary: negative: Dysuria, Frequency, Incontinence, Hematuria, Retention , Other Musculoskeletal: negative: Neck Pain, Shoulder Pain, Arm Pain, Back Pain, Hand Pain, Leg Pain, Foot Pain, Other Skin: negative: Rash, Lesions, Adam, Bruising, Other - Medications/Allergies Allergies/Adverse Reactions: Allergies Allergy/AdvReac Type Severity Reaction Status Date / Time No Known Allergies Allergy Verified 08/10/17 15:59 Medications: Current Medications Acetaminophen (Tylenol) 650 mg PO Q4H PRN PRN Reason: Headache/Fever or Pain Hydrocodone Bitart/Acetaminophen ([place] 5/325) 1 tab PO Q4H PRN PRN Reason: Moderate Pain (4-6) Al Hydroxide/Mg Hydroxide (Maalox) 30 ml PO Q6H PRN PRN Reason: Heartburn or Indigestion Alprazolam (Xanax) 0.25 mg PO BID [facility] Last Admin: 08/13/17 09:23 Dose: 0.25 mg Amlodipine Besylate (Norvasc) 5 mg PO 1100 [facility] Artificial Tears (Tears Renewed 15ml Bottle) 0 drop EA EYE PRN PRN PRN Reason: Dry Eyes Aspirin (Aspirin Chewable) 81 mg PO DAILY [facility] Last Admin: 08/13/17 07:58 Dose: 81 mg Atorvastatin Calcium (Lipitor) 20 mg PO HS [facility] Bisacodyl (Dulcolax) 10 mg [place] Q8H PRN PRN Reason: Constipation Dextrose/Water (Dextrose 50%) 25 gm SLOW IVP PRN PRN PRN Reason: Hypoglycemia Glucagon (Glucagon) 1 mg IM PRN PRN PRN Reason: Hypoglycemia Guaifenesin (Robitussin Sf) 200 mg PO Q4H PRN PRN Reason: Cough Heparin Sodium (Porcine) (Heparin) 5,000 units SC BID [facility] Last Admin: 08/12/17 20:57 Dose: 5,000 units Hydralazine HCl (Apresoline) 10 mg SLOW IVP Q4H PRN PRN Reason: Systolic BP > 180 Dextrose/Water (D5w) 1,000 mls @ 0 mls/hr IV .Q0M PRN; As Directed PRN Reason: Hypoglycemia Isoproterenol HCl 2 mg/ (Dextrose/Water) 510 mls @ 0 mls/hr IVPB INF [facility]; Titrate PRN Reason: Protocol Last Admin: 08/11/17 14:24 Dose: 510 mls Sodium Chloride (Normal Saline 0.9%) 1,000 mls @ 30 mls/hr IV .Q24H [facility] Last Admin: 08/12/17 09:32 Dose: 1,000 mls Insulin Human Lispro (Humalog) 0 units SC .MODERATE SLIDING SC PRN PRN Reason: Moderate Correctional Scale Last Admin: 08/11/17 15:47 Dose: 2 unit Insulin Human Lispro (Humalog) 0 units SC .BEDTIME SLIDING SC PRN PRN Reason: Bedtime Correctional Scale Loperamide HCl (Imodium) 2 mg PO PRN PRN PRN Reason: Diarrhea/Loose Stools Loratadine (Claritin) 10 mg PO DAILYPRN PRN PRN Reason: Sinus Symptoms Magnesium Hydroxide (Milk Of Magnesium) 30 ml PO DAILYPRN PRN PRN Reason: Constipation Last Admin: 08/12/17 09:33 Dose: 30 ml Mineral Oil/White Petrolatum (Eucerin Cream) 0 gm TOP BIDPRN PRN PRN Reason: Dry Skin Nitroglycerin (Nitrostat) 0.4 mg SL Q5MIN PRN PRN Reason: Chest Pain Ondansetron HCl (Zofran Odt) 4 mg PO Q6H PRN PRN Reason: Nausea/Vomiting Last Admin: 08/11/17 08:34 Dose: 4 mg Ondansetron HCl (Zofran) 4 mg IVP Q6H PRN PRN Reason: Nausea/Vomiting Last Admin: 08/10/17 15:40 Dose: 4 mg Pantoprazole Sodium (Protonix) 40 mg PO DAILY [facility] Last Admin: 08/13/17 07:58 Dose: 40 mg Phenol (Chloraseptic [place] 180 Ml Bot) 0 ml PO PRN PRN PRN Reason: Sore Throat Polyethylene Glycol (Miralax) 17 gm PO DAILY [facility] Last Admin: 08/13/17 07:59 Dose: 17 gm Senna (Senokot) 2 tab PO HSPRN PRN PRN Reason: Constipation Sodium Chloride ([place] Nasal [place] 0.65%) 0 ml EA NARE QIDPRN PRN PRN Reason: Nasal Congestion Zolpidem Tartrate (Ambien) 5 mg PO HSPRN PRN PRN Reason: Insomnia
[2017-08-13] MEDS: Sodium Chloride 0.9% 1,000 ML IV SCH (11:31)
[2017-08-13] MEDS: Heparin 5,000 UNITS/ML VIAL SC SCH ×2 (11:35→20:11)
[2017-08-13] MEDS: Amlodipine 5 MG TAB PO SCH (11:35)
--- NOTE | 2017-08-13 11:39 | PRG ---
DATE OF SERVICE: 08/13/2017 SUBJECTIVE: Mr. Brownlee says he is feeling well. We turned off his isoproterenol this morning. OBJECTIVE: VITAL SIGNS: His heart rates now in the 70s, blood pressure is 156/61, respiratory rate 11, oximetry is 95. LUNGS: Clear. HEART: Regular rhythm. ABDOMEN: Soft. LABORATORY DATA: White count 13,500, hemoglobin 13.5, platelets 249,000. Sodium 138, potassium 4.4, chloride 107, bicarbonate 24, BUN 26, creatinine 1.34. IMPRESSION: Bradycardia. PLAN: 1. Await EP input. 2. Hold isoproterenol. 3. Keep him in the ICU for now.
--- NOTE | 2017-08-13 12:44 | PRG ---
DATE OF SERVICE: 08/13/2017 SUBJECTIVE: Patient was seen and examined at bedside and overnight events noted. Patient denies any shortness of breath or chest pain or palpitation. No history of nausea or vomitin g or diarrhea or fever or chills or cramps. OBJECTIVE: GENERAL: This is a well-built male in no apparent distress. VITAL SIGNS: Temperature 98.2, pulse 74, respirations 24, blood pressure 156/61. HEENT: Atraumatic, normocephalic. Oral mucosa is moist. NECK: Supple. CARDIOVASCULAR: S1 and S2 heard. Rate and rhythm regular. RESPIRATORY: Clear to auscultation. GASTROINTESTINAL: Abdomen is soft. MUSCULOSKELETAL: No tenderness. No edema. DERMATOLOGIC: No skin rash. NEUROLOGIC: Alert and awake and oriented x3. No focal neurologic deficits. Moving all the extremit ies. PSYCHIATRIC: Mood and affect normal. LABORATORY DATA: Potassium is 4.4, BUN is 26, creatinine is 1.3. ASSESSMENT AND PLAN: 1. Acute kidney injury on chronic kidney stage 3 with significant improvement in renal function. 2. Hyperkalemia, better. 3. Bradycardia. Follow up with Cardiology. 4. Hypertension, stable. 5. Anemia, stable hemoglobin. 6. Edema, controlled. 7. Follow with Cardiology. I will sign off. Please call back with any questions.
--- NOTE | 2017-08-13 16:42 | PDOC.CTH ---
Cardiology Progress Note - Subjective EP FOLLOW UP NOTE Feeling back to normal - ROS chest pain, dizziness, lightheadedness, nausea, shortness of breath, not able to obtain ROS - Objective Vital Signs Temp Pulse Resp BP BP Pulse Ox 08/13/17 15:06 97.8 F 63 16 125/70 95 08/13/17 13:40 67 156/74 H 08/13/17 12:00 98.4 F 61 18 179/95 H 95 08/13/17 11:35 67 08/13/17 08:00 98.2 F 67 13 99 Weight 158 lb 4.67 oz 08/12/17 08/13/17 08/14/17 06:59 06:59 06:59 Intake Total 3296.8 956.6 Output Total 1800 1900 300 Balance 1496.8 -943.4 -300 - Physical Examination General/Neuro: alert & oriented x3, NAD, other: Neck: carotid US brisk, no JVD present, other: Lungs: CTA, unlabored respirations, other: Heart: PMI normal, RRR, other: Abdomen: no HSM, NT/ND, soft, other: - Telemetry Telemetry Rhythm: SR, LBBB - Labs Result Diagrams: 08/14/17 07:06 08/14/17 07:06 Troponin/CKMB CK-MB (CK-2) 1.8 ng/mL (0-6.6) 08/10/17 10:32 Troponin I Less than 0.010 ng/mL (< 0.028) 08/10/17 16:40 - Assessment/Plan IMPRESSION/PLAN: - Symptomatic bradycardia in the setting of chronic amiodarone and metoprolol use. Improved with holding above over weekend. - Parox atrial fibrillation. Previously supressed with Amiodarone. Now off. consider PVAI if recurrence. resume OAC. - LBBB No high grade AV block. Attending Addendum - Attending Addendum Date/Time: 08/14/17 1603 I personally evaluated the patient and discussed the management with Ms Reeves. I agree with the History, Examination, Assessment and Plan documented above with any addition or exceptions noted below.
[2017-08-13] MEDS ORDERED: Atorvastatin Calcium 20 MG TAB PO SCH (21:00)
[2017-08-14 07:21] LABS: #Basophils 0.1 thou/uL (0.0-0.2); #Eosinphils 0.3 thou/uL (0.0-0.7); #Lymphocytes 4.7 thou/uL (1.20-3.40); #Monocytes 1.2 thou/uL (0.11-0.59); %Basophils 0.9 % (0.0-1.0); %Eosinophils 2.9 % (0.0-10.0); %Lymphocytes 41.4 % (21.0-51.0); %Monocytes 10.5 % (0.0-10.0); %Neutrophils 44.4 % (42.0-75.0); Hemoglobin 13.9 g/dL (14.0-18.0); Mean Corpuscular HGB CONC 33.5 g/dL (32.0-36.0); Mean Corpuscular Hemoglobin 32.6 pg (27.0-31.0); Mean Corpuscular Volume 97.3 fL (78.0-98.0); Mean Platelet Volume 8.1 fL (7.4-10.4); Platelet Count 248 thou/uL (130-400); RBC Distribution Width 12.9 % (11.5-14.5); Red Blood Cell (RBC) Count 4.26 mill/uL (4.70-6.10); White Blood Cell (WBC) Count 11.3 thou/uL (4.8-10.8)
[2017-08-14 07:36] LABS: Anion Gap 12 mmol/L (10-20); BUN (Urea Nitrogen) 25 mg/dL (8.4-25.7); Calc. Creatinine Clearance 42 mL/min (70-130); Calcium 9.9 mg/dL (7.8-10.44); Carbon Dioxide 22 mmol/L (23-31); Chloride 104 mmol/L (98-107); Estimated GFR-MDRD 47; Glucose 131 mg/dL (83-110); Potassium 4.6 mmol/L (3.5-5.1); Sodium 133 mmol/L (136-145)
[2017-08-14] MEDS: Polyethylene Glycol 3350 17 GM Packet PO SCH (08:33)
[2017-08-14] MEDS: ALPRAZolam 0.25 MG TAB PO SCH (08:34)
[2017-08-14] MEDS: Milk Of Magnesia 30 ML UDCUP PO PRN (08:34)
[2017-08-14 08:40] VITALS: TEMP 97.8
[2017-08-14] MEDS ORDERED: Apixaban 5 MG TAB PO SCH (09:00)
--- NOTE | 2017-08-14 10:19 | PRG ---
DATE OF SERVICE: 08/14/2017 This morning he is better. Denied any difficulty breathing. Denies any pain or shortness of breath. PHYSICAL EXAMINATION: VITAL SIGNS: His heart rate is 68, temperature 97, sats 97 on room air, respiration 16, blood pressu re 130/77. CHEST: Chest reveals decreased breath sounds without any wheezing. CARDIAC: Normal S1, S2. No gallops. ABDOMEN: Soft, no masses. LABORATORY: Creatinine 1.46. White count is 11,000. IMPRESSION: 1. Azotemia. 2. Bradycardia. 3. Normal chest x-ray. PLAN: As per the patient, he is to go home. Follow up with lathe turner on an outpatient basis. Pulmonary Critical Care will follow at a distance.
--- NOTE | 2017-08-14 10:28 | PDOC.PN ---
- Subjective Encounter Start Date: 08/14/17 Encounter Start Time: 07:20 Patient seen and examined. No new complaints. No overnight events - Objective Resuscitation Status: Resuscitation Status FULL:Full Resuscitation MAR Reviewed: Yes Vital Signs & Weight: Vital Signs (12 hours) Temp Pulse Resp BP Pulse Ox 08/14/17 08:30 97.8 F 68 16 138/77 96 08/14/17 04:00 97.5 F L 62 18 158/58 H 92 L 08/14/17 00:07 98.8 F 64 16 135/69 95 Weight Weight 158 lb 4.67 oz Most Recent Monitor Data Heart Rate from ECG 62 NIBP 130/97 NIBP BP-Mean 120 Respiration from ECG 10 SpO2 96 I&O: 08/13/17 08/14/17 08/15/17 06:59 06:59 06:59 Intake Total 956.6 480 Output Total 1900 925 Balance -943.4 -445 Result Diagrams: 08/14/17 07:06 08/14/17 07:06 Additional Labs: Accuchecks 08/14/17 08/13/17 08/13/17 05:47 20:25 16:18 POC Glucose 111 H 81 141 H 08/13/17 11:31 POC Glucose 141 H EKG Reviewed by me: Yes (nsr) Phys Exam - Physical Examination Constitutional: NAD HEENT: PERRLA, moist MMs, sclera anicteric Neck: no JVD, supple Respiratory: no wheezing, no rales, no rhonchi Cardiovascular: RRR, no significant murmur, no rub Gastrointestinal: soft, non-tender, no distention, positive bowel sounds Musculoskeletal: no edema, pulses present Neurological: non-focal, normal sensation, moves all 4 limbs Lymphatic: no nodes Psychiatric: normal affect, A&O x 3 Skin: no rash, normal turgor Dx/Plan (1) Symptomatic bradycardia Code(s): R00.1 - BRADYCARDIA, UNSPECIFIED Status: Acute (2) Hyperkalemia Code(s): E87.5 - HYPERKALEMIA Status: Resolved (3) Acute on chronic kidney failure Code(s): N17.9 - ACUTE KIDNEY FAILURE, UNSPECIFIED; N18.9 - CHRONIC KIDNEY DISEASE, UNSPECIFIED Status: Acute Qualifiers: Chronic kidney disease stage: unspecified stage (4) Hypertension Code(s): I10 - ESSENTIAL (PRIMARY) HYPERTENSION Status: Chronic (5) Paroxysmal atrial fibrillation Code(s): I48.0 - PAROXYSMAL ATRIAL FIBRILLATION Status: Chronic (6) Diabetes type 2, controlled Code(s): E11.9 - TYPE 2 DIABETES MELLITUS WITHOUT COMPLICATIONS Status: Chronic (7) Chronic anticoagulation Code(s): Z79.01 - CORRECTION (CURRENT) USE OF ANTICOAGULANTS Status: Chronic (8) Constipation Code(s): K59.00 - CONSTIPATION, UNSPECIFIED Status: Acute - Plan cont current plan of care * medication reviewed as below * symptomatic treatment * see discharge summery for details. Review of Systems - Review of Systems Eyes: negative: Pain, Vision Change, Conjunctivae Inflammation, Eyelid Inflammation, Redness, Other ENT: negative: Ear Pain, Ear Discharge, Nose Pain, Nose Discharge, Nose Congestion, Mouth Pain, Mouth Swelling, Throat Pain, Throat Swelling, Other Respiratory: negative: Cough, Dry, Shortness of Breath, Hemoptysis, SOB with Excertion, Pleuritic Pain, Sputum, Wheezing Cardiovascular: negative: chest pain, palpitations, orthopnea, paroxysmal nocturnal dyspnea, edema, light headedness, other Gastrointestinal: negative: Nausea, Vomiting, Abdominal Pain, Diarrhea, Constipation, Melena, Hematochezia, Other Genitourinary: negative: Dysuria, Frequency, Incontinence, Hematuria, Retention , Other Musculoskeletal: negative: Neck Pain, Shoulder Pain, Arm Pain, Back Pain, Hand Pain, Leg Pain, Foot Pain, Other Skin: negative: Rash, Lesions, Adam, Bruising, Other - Medications/Allergies Allergies/Adverse Reactions: Allergies Allergy/AdvReac Type Severity Reaction Status Date / Time No Known Allergies Allergy Verified 08/10/17 15:59 Medications: Current Medications Acetaminophen (Tylenol) 650 mg PO Q4H PRN PRN Reason: Headache/Fever or Pain Hydrocodone Bitart/Acetaminophen ([place] 5/325) 1 tab PO Q4H PRN PRN Reason: Moderate Pain (4-6) Al Hydroxide/Mg Hydroxide (Maalox) 30 ml PO Q6H PRN PRN Reason: Heartburn or Indigestion Alprazolam (Xanax) 0.25 mg PO BID [facility] Last Admin: 08/14/17 08:34 Dose: 0.25 mg Amlodipine Besylate (Norvasc) 5 mg PO 1100 [facility] Last Admin: 08/13/17 11:35 Dose: 5 mg Apixaban (Eliquis) 5 mg PO BID [facility] Last Admin: 08/14/17 08:34 Dose: 5 mg Artificial Tears (Tears Renewed 15ml Bottle) 0 drop EA EYE PRN PRN PRN Reason: Dry Eyes Aspirin (Aspirin Chewable) 81 mg PO DAILY [facility] Last Admin: 08/14/17 08:34 Dose: 81 mg Atorvastatin Calcium (Lipitor) 20 mg PO HS [facility] Last Admin: 08/13/17 20:11 Dose: 20 mg Bisacodyl (Dulcolax) 10 mg [place] Q8H PRN PRN Reason: Constipation Dextrose/Water (Dextrose 50%) 25 gm SLOW IVP PRN PRN PRN Reason: Hypoglycemia Glucagon (Glucagon) 1 mg IM PRN PRN PRN Reason: Hypoglycemia Guaifenesin (Robitussin Sf) 200 mg PO Q4H PRN PRN Reason: Cough Hydralazine HCl (Apresoline) 10 mg SLOW IVP Q4H PRN PRN Reason: Systolic BP > 180 Dextrose/Water (D5w) 1,000 mls @ 0 mls/hr IV .Q0M PRN; As Directed PRN Reason: Hypoglycemia Insulin Human Lispro (Humalog) 0 units SC .MODERATE SLIDING SC PRN PRN Reason: Moderate Correctional Scale Last Admin: 08/11/17 15:47 Dose: 2 unit Insulin Human Lispro (Humalog) 0 units SC .BEDTIME SLIDING SC PRN PRN Reason: Bedtime Correctional Scale Isosorbide Mononitrate (Imdur Er) 30 mg PO DAILY [facility] Last Admin: 08/14/17 08:34 Dose: 30 mg Loperamide HCl (Imodium) 2 mg PO PRN PRN PRN Reason: Diarrhea/Loose Stools Loratadine (Claritin) 10 mg PO DAILYPRN PRN PRN Reason: Sinus Symptoms Magnesium Hydroxide (Milk Of Magnesium) 30 ml PO DAILYPRN PRN PRN Reason: Constipation Last Admin: 08/14/17 08:34 Dose: 30 ml Mineral Oil/White Petrolatum (Eucerin Cream) 0 gm TOP BIDPRN PRN PRN Reason: Dry Skin Nitroglycerin (Nitrostat) 0.4 mg SL Q5MIN PRN PRN Reason: Chest Pain Ondansetron HCl (Zofran Odt) 4 mg PO Q6H PRN PRN Reason: Nausea/Vomiting Last Admin: 08/11/17 08:34 Dose: 4 mg Ondansetron HCl (Zofran) 4 mg IVP Q6H PRN PRN Reason: Nausea/Vomiting Last Admin: 08/10/17 15:40 Dose: 4 mg Pantoprazole Sodium (Protonix) 40 mg PO DAILY [facility] Last Admin: 08/14/17 08:34 Dose: 40 mg Phenol (Chloraseptic [place] 180 Ml Bot) 0 ml PO PRN PRN PRN Reason: Sore Throat Polyethylene Glycol (Miralax) 17 gm PO DAILY [facility] Last Admin: 08/14/17 08:33 Dose: 17 gm Senna (Senokot) 2 tab PO HSPRN PRN PRN Reason: Constipation Last Admin: 08/13/17 20:11 Dose: 2 tab Sodium Chloride ([place] Nasal [place] 0.65%) 0 ml EA NARE QIDPRN PRN PRN Reason: Nasal Congestion Zolpidem Tartrate (Ambien) 5 mg PO HSPRN PRN PRN Reason: Insomnia
[2017-08-14] MEDS: Amlodipine 5 MG TAB PO SCH (11:04)
[2017-08-14 11:32] VITALS: BP 128/72
--- NOTE | 2017-08-14 12:15 | PRG ---
DATE OF SERVICE: 08/14/2017 SUBJECTIVE: Patient was seen and examined at bedside and overnight events noted. Patient denies any shortness of breath or chest pain or palpitation. No history of nausea or vomiting or diarrhea or f ever or chills or cramps. OBJECTIVE: GENERAL: This is a well-built male in no apparent distress. VITAL SIGNS: Temperature 98.7, pulse 65, respiratory rate 18, blood pressure 138/77. HEENT: Atraumatic, normocephalic. Oral mucosa is moist. NECK: Supple. CARDIOVASCULAR: S1, S2 heard. Rate and rhythm regular. RESPIRATORY: Clear to auscultation. GASTROINTESTINAL: Abdomen is soft. MUSCULOSKELETAL: No tenderness. No edema. DERMATOLOGIC: No skin rash. NEUROLOGIC: Alert and awake and oriented x3. No focal neurologic deficits. Moving all the extremiti es. PSYCHIATRIC: Mood and affect normal. LABORATORY DATA: Potassium 4.3. BUN . ASSESSMENT AND PLAN: 1. Acute kidney injury on chronic kidney stage 3, renal function is stable. 2. Edema controlled. 3. Bradycardia. 4. Anemia. 5. Hypertension, stable. 6. Renal function is stable. We will follow.
--- NOTE | 2017-08-14 12:23 | DIS ---
PRIMARY CARE PHYSICIAN: Dr. Ledbetter DATE OF ADMISSION: 08/10/2017 DATE OF DISCHARGE: 08/14/2017 DISCHARGE DISPOSITION: Home. PRIMARY DISCHARGE DIAGNOSES: 1. Acute on chronic kidney failure, baseline chronic kidney disease stage 3. 2. Severe constipation. 3. Symptomatic bradycardia due to medication. 4. Hyperkalemia, corrected. SECONDARY DISCHARGE DIAGNOSES: Paroxysmal atrial fibrillation, left bundle branch block pattern, hyp ertension, diabetes type 2, chronic anticoagulation, chronic kidney disease stage 3. PRIMARY PROCEDURE/OPERATION: None. RADIOLOGICAL INVESTIGATION: Chest x-ray was normal. Renal ultrasound was normal. Echocardiography showed normal EF. SIGNIFICANT LABORATORY DATA: WBC 11.3, hemoglobin 13.9, platelet 248. Sodium 133, creatinine 1.46, calcium 89.9. Urinalysis unremarkable. DISCHARGE MEDICATIONS: Patient is advised to avoid metoprolol and amiodarone. Continue following medications: Xanax 1 mg p.o. daily, Eliquis 5 mg p.o. b.i.d., Imdur 30 mg p.o. da ayah, amlodipine 5 mg p.o. daily, Zocor 20 mg p.o. at bedtime. CONTRAINDICATIONS: The patient is not on beta delaney because of bradycardia. TEST RESULTS PENDING ON DISCHARGE: None. ALLERGIES: No known drug allergy. DISCHARGE PLAN: Post hospital, the patient will follow up with primary care physician. The patient is also advised to follow up with Dr. Quijano as instructed. HOSPITAL COURSE: A 77-year-old male who was taking amiodarone and metoprolol for a period of time fo r his paroxysmal atrial fibrillation. He was feeling intermittently dizziness and generalized weakne ss that had gradually gotten worse. He made appointment with primary care physician. He was found w ith bradycardia. He was sent to ER and over there his pulse was in the 30s. He was given atropine a nd subsequently dopamine was started. The patient was admitted in CCU. The patient also required is oproterenol drip after dopamine because even with dopamine his heart rate was in 40s. After starting isoproterenol drip, the patient's heart rate remained in 60s and subsequently he did not have any fu rther drop in heart rate. We discontinued completely amiodarone and metoprolol while in hospital and once medication effect went off, his heart rate remained in the 60 to 70s. At this point, we discon tinued this medication and for his blood pressure we started amlodipine. We resumed his chronic anti coagulation for his paroxysmal atrial fibrillation. Electrophysiology saw this patient and he was no t required any pacemaker. Cardiology was also following while in hospital. Echocardiography was unr emarkable. He also had acute on chronic kidney failure. On admission his creatinine was 3.16 and by the time of discharge, his creatinine improved to 1.46 with IV fluid. He also had hyperkalemia and that is why we discontinued lisinopril and instead we started amlodipine. While in the hospital we discontinued metformin, but upon discharge, we resumed that medication once renal function improved. While in the hospital he also had severe constipation, required Fleet enema and after that the patient had signif icant improvement and after getting Fleet enema the patient's WBC count was also improving. While in hospital, he did not have any fever. We did a renal ultrasound which was also normal. Cardiology c leared him for discharge. Patient also wants to go home today. All new medication prescription sent to his pharmacy. The patient is seen and examined at bedside today. Please see my progress note from today for furthe r details.
[2017-08-14] MEDS ORDERED: Simvastatin 20 MG TAB PO SCH (21:00)
== END 2017-08-14 12:08 | disposition home or self-care (01) | DRG 683 ==
LOC: ERS 10:18 → CCU 13:28 → 2NO 08-13 11:48
PROVIDERS: ADMIT Internal Medicine; ATTEND Internal Medicine
DX: N17.9 Acute kidney failure, unspecified (principal); E87.2 Acidosis; E87.1 Hypo-osmolality and hyponatremia; R00.1 Bradycardia, unspecified; T46.2X5A Adverse effect of other antidysrhythmic drugs, initial encounter; T44.7X5A Adverse effect of beta-adrenoreceptor antagonists, initial encounter; I48.0 Paroxysmal atrial fibrillation; I44.7 Left bundle-branch block, unspecified; E87.5 Hyperkalemia; I12.9 Hypertensive chronic kidney disease with stage 1 through stage 4 chronic kidney disease, or unspecified chronic kidney disease; E11.22 Type 2 diabetes mellitus with diabetic chronic kidney disease; N18.3 Chronic kidney disease, stage 3 (moderate); Z79.01 Long term (current) use of anticoagulants; K59.00 Constipation, unspecified; Z85.07 Personal history of malignant neoplasm of pancreas; F41.9 Anxiety disorder, unspecified; F32.9 Major depressive disorder, single episode, unspecified; D63.1 Anemia in chronic kidney disease; E83.52 Hypercalcemia; I95.9 Hypotension, unspecified
CPT/HCPCS: 36415; 36416; 71045; 76770; 80048; 80053; 80061; 81001; 82550; 82553; 82570; 83690; 83735; 83880; 83970; 84100; 84156; 84300; 84443; 84484; 85025; 93005; 93306; 96365; 96366; 96375; 99292; J0360; J0461; J1265; J1644; J2405; J7070; Q0162

== ENCOUNTER 2018-07-08 23:01 | Observation (INO) | payer MEDICARE ==
--- NOTE | 2018-07-08 23:32 | RAD ---
EXAM: CHEST ONE VIEW HISTORY: Chest pain COMPARISON: 08/10/2017 FINDINGS: Cardiac silhouette is magnified by projection but stable in size compared to prior exam. The pulmonar y vasculature is within normal limits. The lungs are clear. The osseous structures are intact. IMPRESSION: No acute cardiopulmonary process.
[2018-07-08 23:57] LABS: Hemoglobin 14.6 g/dL (14.0-18.0); Mean Corpuscular HGB CONC 33.5 g/dL (32.0-36.0); Mean Corpuscular Hemoglobin 32.3 pg (27.0-31.0); Mean Corpuscular Volume 96.4 fL (78.0-98.0); Mean Platelet Volume 8.7 fL (7.4-10.4); Platelet Count 248 thou/uL (130-400); RBC Distribution Width 12.8 % (11.5-14.5); Red Blood Cell (RBC) Count 4.53 mill/uL (4.70-6.10); White Blood Cell (WBC) Count 9.9 thou/uL (4.8-10.8)
[2018-07-09 00:07] LABS: Eosinophils 3 % (0-10); Lymphocytes 39 % (21-51); MDiff Complete? YES; Monocytes 5 % (0-10); Neutrophil 30 % (42-75); Platelet Morphology Comment Appears Adequate; Reactive Lymphocytes 22 % (0-10)
[2018-07-09 00:14] LABS: ALT (SGPT) 23 U/L (8-55); AST (SGOT) 21 U/L (5-34); Albumin 4.4 g/dL (3.4-4.8); Alkaline Phosphatase 72 U/L (40-150); Anion Gap 12 mmol/L (10-20); BUN (Urea Nitrogen) 30 mg/dL (8.4-25.7); Bilirubin, Total 0.5 mg/dL (0.2-1.2); CK (CPK) 168 U/L (30-200); Calc. Creatinine Clearance 0 mL/min (70-130); Calcium 10.6 mg/dL (7.8-10.44); Carbon Dioxide 24 mmol/L (23-31); Chloride 106 mmol/L (98-107); Estimated GFR-MDRD 43; Globulin 2.3 g/dL (2.4-3.5); Glucose 107 mg/dL (83-110); Lipase 21 U/L (8-78); Potassium 4.3 mmol/L (3.5-5.1); Protein, Total 6.7 g/dL (5.8-8.1); Sodium 138 mmol/L (136-145)
[2018-07-09] MEDS ORDERED: Aspirin 325 MG TAB ONE (00:14)
[2018-07-09 03:20] LABS: Troponin I Less than 0.010 ng/mL (< 0.028)
[2018-07-09 06:03] LABS: Troponin I Less than 0.010 ng/mL (< 0.028)
[2018-07-09] MEDS ORDERED: Acetaminophen 650 MG Suppository PR PRN (12:44)
[2018-07-09] MEDS ORDERED: Ondansetron ODT 4 MG TAB PO PRN (12:44)
[2018-07-09] MEDS ORDERED: Ondansetron PF 4 MG/2 ML Vial IVP PRN (12:44)
[2018-07-09] MEDS ORDERED: Guaifenesin DM 100-10/5 ML UDCUP PO PRN (12:44)
[2018-07-09] MEDS ORDERED: Acetaminophen 325 MG TAB PO PRN (12:44)
[2018-07-09] MEDS ORDERED: Senokot S 8.6-50 MG TAB PO PRN (12:44)
[2018-07-09] MEDS ORDERED: Dextrose 5% in Water 1,000 ML IV PRN (12:45)
[2018-07-09] MEDS ORDERED: HumaLOG 300 UNITS/3 ML VIAL SC PRN ×2 (12:45)
[2018-07-09] MEDS ORDERED: Dextrose 50% Abboject 50 ML SYRINGE SLOW IVP PRN (12:45)
[2018-07-09] MEDS ORDERED: ALPRAZolam 0.5 MG TAB PO PRN (12:46)
--- NOTE | 2018-07-09 12:59 | RAD ---
XR Chest 1 View Portable History: [Heart failure] Comparison: Radiograph prior day Findings: Heart size mildly enlarged. No pneumothorax. No effusion. No acute osseous abnormality. Mild tortuosity of the aorta. Impression: Cardiomegaly, unchanged. No acute intrathoracic abnormality.
[2018-07-09] MEDS ORDERED: Furosemide 20 MG/2 ML VIAL ONE (13:09)
[2018-07-09] MEDS ORDERED: Furosemide 20 MG/2 ML VIAL SLOW IVP SCH (14:00)
[2018-07-09 14:07] VITALS: BMI 23.6
[2018-07-09] MEDS ORDERED: Nitroglycerin 0.4 MG TAB (25 Tab Bottle) SL PRN (15:45)
--- NOTE | 2018-07-09 17:26 | CON ---
DATE OF CONSULTATION: 07/09/2018 REASON FOR CONSULTATION: Chest tightness. PRIMARY SOCIOLOGY ADJUNCT INSTRUCTOR: Ronan Quijano MD HISTORY OF PRESENT ILLNESS: Mr. Brownlee is a very pleasant 78-year-old patient. He has a history of atrial fibrillation. The patient was seen here last summer. At that time, he is on amiodarone and beta-delaney and then according to those notes, he was taken off those medicines at that time. The patient thinks that he goes in and out of atrial fibrillation, but that he has been in fibrillation for the last few weeks. The patient has recently been having chest pressure, not necessarily related to the rapid heart rate. The patient had a cardiac catheterization he said about 10 years ago, which did not show any obstruction. OTHER PAST HISTORY: 1. Hypercholesterolemia. 2. Diabetes. 3. Atrial fibrillation, which the patient thinks is paroxysmal. MEDICATIONS: At home include; 1. Isosorbide. 2. Apixaban. 3. Amlodipine. 4. Nitroglycerin. 5. Glipizide. ALLERGIES: NONE KNOWN. REVIEW OF SYSTEMS: CONSTITUTIONAL: No significant weight gain or loss. VISION: No changes. HEARING: No changes. PULMONARY: No cough or wheezing. GASTROINTESTINAL: No nausea, vomiting, or diarrhea. SKIN: No rashes. NEUROLOGIC: No unilateral weakness or numbness. PSYCHIATRIC: No unusual depression or anxiety. HEMATOLOGIC: No unusual bruising. GENITOURINARY: No burning with urination. SOCIAL HISTORY: No alcohol or tobacco abuse. PHYSICAL EXAMINATION: GENERAL: On examination, this is a pleasant 78-year-old gentleman, resting comfortably, in no distress. VITAL SIGNS: Blood pressure 130/83 and pulse 102, it is irregular. NECK: Neck veins are normal. LUNGS: Clear. CARDIAC: Irregularly irregular. I do not hear murmur, rub, or gallop. ABDOMEN: Soft, nontender. EXTREMITIES: No clubbing or cyanosis. There is no edema. SKIN: Warm and dry. PERTINENT LABORATORY DATA: Hemoglobin is 14.6 and a creatinine 1.57. BNP is 365. IMAGING DATA: Chest x-ray, however, does not really show any evidence of pulmonary vascular congestion. Echocardiogram done in August 2017 revealed an ejection fraction of 55% to 60%. ASSESSMENT: 1. Diastolic heart failure with previously normal left ventricular function with increased BNP, does not really look volume overloaded now. 2. Atrial fibrillation. The patient thinks it is paroxysmal, but the history suggests chronic, whose is need to be re-evaluated. 3. Diabetes. 4. Cardiac enzymes are negative. PLAN: 1. We will hold isosorbide tonight. 2. Stress test tomorrow to risk stratify. 3. Dr. Quijano will resume care tomorrow. 4. The patient does have stage 3 renal failure. Estimated GFR is 43, creatinine 1.57. Job ID: [id number]
[2018-07-09] MEDS: ALPRAZolam 0.5 MG TAB PO SCH (20:55)
[2018-07-09] MEDS: Apixaban 5 MG TAB PO SCH (20:55)
[2018-07-09] MEDS: Famotidine 20 MG TAB PO SCH (20:56)
[2018-07-09] MEDS: Simvastatin 20 MG TAB PO SCH (20:56)
--- NOTE | 2018-07-09 22:54 | HP ---
PRIMARY CARE PHYSICIAN: Khloe Padgett MD PRIMARY BATTER OUT: Ronan Quijano MD HISTORY OF PRESENT ILLNESS: This is a 78-year-old white male with a known history of mild coronary artery disease, last catheterization more than 10 years ago, but with a stress test within the last year that was normal. Also with a history of atrial fibrillation, previously treated with amiodarone and metoprolol, which caused severe bradycardia. He was in the hospital for that about a little less than a year ago, seen by Dr. Quijano and Dr. Pretty at that time. He has been doing well since then and has some palpitations about once a month. He had a visit with Dr. Quijano in February and at that time, he said he would do an echocardiogram the next time that he saw him. The patient reports that now for the last 2 months he has been getting increasing short of breath, mostly with exertion. He also has noted fairly persistent palpitations in his chest for at least the last couple of weeks if not longer. Yesterday, the patient was lying at rest in the afternoon, he developed sudden onset chest pressure. It was substernal, did not radiate anywhere, lasted for more than 2 hours. He took a nitroglycerin without any improvement, so he came to the emergency room. In the ER, he was already starting to get better. He just had an aspirin here and he has had no pain since. The patient reports that he has had some swelling in his ankles, especially when he is up on his feet for a long time for the last couple of months as well. He did have a little bit of nausea yesterday and was a little sweaty, but no other associated symptoms and he is currently asymptomatic. He has had negative cardiac markers x3 now in the emergency room. He has atrial fibrillation on his monitor and EKG, usually is running in the 70s to 90s. PAST MEDICAL HISTORY: 1. Coronary artery disease. 2. Chronic atrial fibrillation, on anticoagulation. 3. Diabetes mellitus type 2. 4. Hypertension. 5. Chronic kidney disease. 6. Previous pancreatic cancer status post Whipple many years ago. PAST SURGICAL HISTORY: 1. Whipple surgery for pancreatic cancer without any residual. 2. Tonsillectomy. 3. Cardiac catheterization with stent placement more than 10 years ago. 4. Stress test within the last year. SOCIAL HISTORY: The patient is . He drinks a few beers per day, less than 5 and denies any tobacco or illicit drug use. FAMILY HISTORY: The patient reports that he had some relatives, one of his grandparents who may have had some heart disease when they were older, but no premature coronary artery disease. No other medical problems around the family. ALLERGIES: NO KNOWN DRUG ALLERGIES. CURRENT MEDICATIONS: 1. Alprazolam 0.5 mg at night. 2. Amlodipine 5 mg daily. 3. Eliquis 5 mg twice a day. 4. Glipizide 5 mg at night. 5. Imdur extended release 30 mg at night. 6. Nitrostat as needed for chest pain. 7. Simvastatin 20 mg at night. REVIEW OF SYSTEMS: CONSTITUTIONAL: No fevers or chills. EYES: No double vision or blurred vision. ENT: No congestion, drainage, or sore throat. CARDIOVASCULAR: See HPI. PULMONARY: No coughing or wheezing. He does have the dyspnea on exertion. No other shortness of breath. GASTROINTESTINAL: No abdominal pain. He may have had a little nausea yesterday , but it has since resolved. No vomiting. No diarrhea or constipation. GENITOURINARY: No dysuria or hematuria. MUSCULOSKELETAL: No muscle aches or joint pains. He has had lower extremity edema as per the HPI. SKIN: No rashes or other lesions he has noted. NEUROLOGIC: No numbness, tingling, or focal weakness. PHYSICAL EXAMINATION: VITAL SIGNS: Blood pressure 118/73, pulse 75, respirations 16, temperature 97.5 , O2 saturation 98% on room air. GENERAL: This is a well-developed, well-nourished white male, in no acute distress. HEENT: Pupils are equal, round, and reactive to light. Oropharynx is clear without lesions, erythema, or exudate. NECK: Supple. No lymphadenopathy. No thyroid nodules or enlargement. HEART: Irregularly irregular rhythm. No murmurs, rubs, or gallops. No tachycardia. LUNGS: Clear to auscultation bilaterally. No wheezes, crackles, or rhonchi. ABDOMEN: Soft, nontender to palpation. Normoactive bowel sounds. No hepatosplenomegaly or other masses. EXTREMITIES: No clubbing, cyanosis, or edema. SKIN: No rashes or other lesions noted. NEUROLOGIC: Intact strength and sensation in all extremities. No facial droop. LABORATORY DATA: Complete metabolic panel is notable for a BUN of 30, a creatinine of 1.57, which is about his baseline, calcium of 10.6. The rest was normal. Troponins negative x3. Brain natriuretic peptide elevated at 365, which is higher than 136 he had in his last admission a year ago. CBC without significant abnormality. IMAGING: EKG, I did review the EKG done in the emergency room. It shows atrial fibrillation with controlled ventricular response of 83 beats per minute and a complete left bundle branch block. Chest x-ray, I did review the chest x-ray done in the emergency room along with the radiologist's report and does show no infiltrates, no cardiomegaly or effusions , no acute cardiopulmonary process. ASSESSMENT: 1. Chest pain, now resolved. He has no evidence for heart attack at this point. No EKG changes. No elevation of troponins. The patient has had a negative stress test within the last year. 2. New onset congestive heart failure. I did talk to Dr. Anderson who is on-call for Dr. Quijano. He will evaluate the patient in the hospital. The patient does not appear to be floridly overloaded, but is symptomatic and has significantly elevated brain natriuretic peptide. We will go ahead and try a gentle diuresis on him. We will watch his kidney function closely. He has never been exposed to Lasix, we will just give him 20 mg IV twice a day for now and see how he responses to that. We will defer decision on any stress testing to Dr. Anderson and we will go ahead and get an echocardiogram on the patient. 3. Hypertension. We will resume the patient's antihypertensives. 4. Atrial fibrillation. Currently, persistent and symptomatic. This is possibly the source of his congestive heart failure. He has some diastolic dysfunction from it. He is not in a severely rapid rate at this time, but given his symptoms, he may need further treatment for this. We will defer to Dr. Anderson. We will go ahead and continue the patient's amiodarone and Eliquis for now. 5. Hyperlipidemia. We will resume the patient's statin. 6. Coronary artery disease with previous stent. 7. Gastrointestinal prophylaxis. We will put the patient on Pepcid twice a day. 8. Deep venous thrombosis prophylaxis. The patient is already on Eliquis. 9. code status. I did discuss this with the patient, he is a full code. Should he be incapacitated, his medical decision maker would be his , her name is Lucy Brownlee. Job ID: [id number] MTDD
[2018-07-10 05:51] LABS: #Basophils 0.1 thou/uL (0.0-0.2); #Eosinphils 0.3 thou/uL (0.0-0.7); #Lymphocytes 4.2 thou/uL (1.20-3.40); #Monocytes 1.2 thou/uL (0.11-0.59); #Neutrophils 4.4 thou/uL (1.40-6.50); %Basophils 1.1 % (0.0-1.0); %Eosinophils 2.7 % (0.0-10.0); %Monocytes 11.9 % (0.0-10.0); %Neutrophils 43.4 % (42.0-75.0); Hemoglobin 16.2 g/dL (14.0-18.0); Mean Corpuscular HGB CONC 32.7 g/dL (32.0-36.0); Mean Corpuscular Hemoglobin 31.5 pg (27.0-31.0); Mean Corpuscular Volume 96.2 fL (78.0-98.0); Mean Platelet Volume 8.6 fL (7.4-10.4); Platelet Count 266 thou/uL (130-400); RBC Distribution Width 12.9 % (11.5-14.5); Red Blood Cell (RBC) Count 5.13 mill/uL (4.70-6.10); White Blood Cell (WBC) Count 10.2 thou/uL (4.8-10.8)
[2018-07-10 06:17] LABS: Anion Gap 13 mmol/L (10-20); BUN (Urea Nitrogen) 30 mg/dL (8.4-25.7); Calc. Creatinine Clearance 39 mL/min (70-130); Calcium 10.5 mg/dL (7.8-10.44); Carbon Dioxide 24 mmol/L (23-31); Chloride 105 mmol/L (98-107); Estimated GFR-MDRD 41; Glucose 129 mg/dL (83-110); Potassium 4.1 mmol/L (3.5-5.1); Sodium 138 mmol/L (136-145)
--- NOTE | 2018-07-10 08:05 | PDOC.PN ---
- Subjective Encounter Start Date: 07/10/18 Encounter Start Time: 13:50 Subjective: Patient without chest pain/pressure. No SOB. No edema. - Objective Resuscitation Status - Order Detail: 07/09/18 12:39 Resuscitation Status Routine Resuscitation Status: FULL: Full Resuscitation Discussed with: Rossana SWEENEY Reviewed: Yes Vital Signs & Weight: Vital Signs (12 hours) Temp Pulse Resp BP BP Pulse Ox 07/10/18 07:52 97.5 F L 76 18 89/53 L 94 L 07/10/18 04:10 66 18 125/60 95 07/09/18 23:16 97.4 F L 79 16 101/70 94 L Weight Weight 166 lb 3.2 oz I&O: 07/09/18 07/10/18 07/11/18 06:59 06:59 06:59 Output Total 650 Balance -650 Result Diagrams: 07/10/18 05:40 07/10/18 05:40 Additional Labs: Accuchecks 07/10/18 07/09/18 07/09/18 05:44 19:35 16:43 POC Glucose 128 H 165 H 83 Phys Exam - Physical Examination Constitutional: NAD HEENT: moist MMs Respiratory: no wheezing, no rales, no rhonchi, clear to auscultation bilateral Cardiovascular: no significant murmur, irregular Gastrointestinal: soft Neurological: non-focal, moves all 4 limbs Psychiatric: normal affect, A&O x 3 Dx/Plan (1) Acute congestive heart failure Code(s): I50.9 - HEART FAILURE, UNSPECIFIED Status: Acute Qualifiers: Heart failure type: combined systolic and diastolic Qualified Code(s): I50.41 - Acute combined systolic (congestive) and diastolic (congestive) heart failure Comment: ECHO with depressed EF 30%, not florridly overloaded, giving small dose lasix (2) Chronic renal failure, stage 3 (moderate) Code(s): N18.3 - CHRONIC KIDNEY DISEASE, STAGE 3 (MODERATE) Status: Chronic (3) Chest pressure Code(s): R07.89 - OTHER CHEST PAIN Status: Resolved Comment: stress test this morning (4) Paroxysmal atrial fibrillation Code(s): I48.0 - PAROXYSMAL ATRIAL FIBRILLATION Status: Chronic (5) Chronic anticoagulation Code(s): Z79.01 - HALF-WAY (CURRENT) USE OF ANTICOAGULANTS Status: Chronic (6) Diabetes type 2, controlled Code(s): E11.9 - TYPE 2 DIABETES MELLITUS WITHOUT COMPLICATIONS Status: Chronic (7) Hypertension Code(s): I10 - ESSENTIAL (PRIMARY) HYPERTENSION Status: Chronic (8) Coronary artery disease Code(s): I25.10 - ATHSCL HEART DISEASE OF [place] CORONARY ARTERY W/O ANG PCTRS Status: Chronic - Plan cont current plan of care, DVT proph w/SCDs ECHO with decreased EF 30% -: Stress test no ischemia, evidence of septal scar -: Dr. Quijano planning on cardioversion tomorrow * . - Discharge Day Encounter end time: 14:00
[2018-07-10] MEDS ORDERED: Amlodipine 5 MG TAB PO SCH (09:00)
[2018-07-10] MEDS ORDERED: Amiodarone 200 MG TAB PO SCH (09:00)
--- NOTE | 2018-07-10 11:36 | NM ---
EXAM: Nuclear medicine cardiac SPECT with EF and wall motion: HISTORY: Chest pressure, history of coronary artery disease, A. Fib, hypertension, and prior heart catheteriza tion. Protocol: Exam was performed using Lexiscan protocol. Patient was injected with 30 mCi technetium 99m sestamibi intravenously for stress images. Patient was injected with 9.3 mCi technetium 99m sestamibi intravenously for resting images. Multiple SPECT images are performed in the short axis, vertical long axis, and horizontal long axis. FINDINGS: Minimal decreased activity in the septum on stress and resting images evidence for scar or infarct. TID:0.90 LHR:0.23 EDV:110 mL EF:34% Wall motion:Septal dyskinesis. IMPRESSION: No evidence for ischemia. Evidence for scar or infarct involving the septum with septal dyskinesis.
[2018-07-10] MEDS: Apixaban 5 MG TAB PO SCH ×2 (12:05→21:35)
[2018-07-10] MEDS: Furosemide 20 MG TAB PO SCH ×2 (12:05→15:42)
[2018-07-10] MEDS: Famotidine 20 MG TAB PO SCH ×2 (12:05→21:35)
[2018-07-10] MEDS ORDERED: ADENOSINE 60 MG/20 ML VIAL ONE ×2 (14:36→20:01)
[2018-07-10] MEDS: ALPRAZolam 0.5 MG TAB PO SCH (21:35)
[2018-07-10] MEDS: Simvastatin 20 MG TAB PO SCH (21:35)
--- NOTE | 2018-07-11 07:32 | PDOC.PN ---
- Subjective Encounter Start Date: 07/11/18 Encounter Start Time: 09:10 Subjective: Patient feeling well. No chest pain. No palpitations. Awaiting -: cardioversion. - Objective Resuscitation Status - Order Detail: 07/09/18 12:39 Resuscitation Status Routine Resuscitation Status: FULL: Full Resuscitation Discussed with: Patient PATEL Reviewed: Yes Vital Signs & Weight: Vital Signs (12 hours) Pulse Resp BP 07/11/18 04:10 71 18 106/65 Weight Weight 171 lb 9.6 oz I&O: 07/10/18 07/11/18 07/12/18 06:59 06:59 06:59 Intake Total 750 Output Total 650 550 Balance -650 200 Result Diagrams: 07/10/18 05:40 07/10/18 05:40 Additional Labs: Accuchecks 07/11/18 07/10/18 07/10/18 06:14 20:52 16:37 POC Glucose 117 H 120 H 175 H 07/10/18 11:21 POC Glucose 251 H Phys Exam - Physical Examination Constitutional: NAD HEENT: moist MMs Respiratory: no wheezing, no rales, no rhonchi Cardiovascular: RRR, no significant murmur Gastrointestinal: soft, positive bowel sounds Musculoskeletal: no edema Neurological: non-focal, moves all 4 limbs Psychiatric: normal affect, A&O x 3 Dx/Plan (1) Acute congestive heart failure Code(s): I50.9 - HEART FAILURE, UNSPECIFIED Status: Acute Qualifiers: Heart failure type: combined systolic and diastolic Qualified Code(s): I50.41 - Acute combined systolic (congestive) and diastolic (congestive) heart failure Comment: ECHO with depressed EF 30%, not florridly overloaded, giving small dose lasix (2) Chronic renal failure, stage 3 (moderate) Code(s): N18.3 - CHRONIC KIDNEY DISEASE, STAGE 3 (MODERATE) Status: Chronic (3) Chest pressure Code(s): R07.89 - OTHER CHEST PAIN Status: Resolved Comment: stress test negative for ischemia, some septum scarring (4) Paroxysmal atrial fibrillation Code(s): I48.0 - PAROXYSMAL ATRIAL FIBRILLATION Status: Chronic Comment: plan for cardioversion today (5) Chronic anticoagulation Code(s): Z79.01 - SKILLED NURSING (CURRENT) USE OF ANTICOAGULANTS Status: Chronic (6) Diabetes type 2, controlled Code(s): E11.9 - TYPE 2 DIABETES MELLITUS WITHOUT COMPLICATIONS Status: Chronic (7) Hypertension Code(s): I10 - ESSENTIAL (PRIMARY) HYPERTENSION Status: Chronic (8) Coronary artery disease Code(s): I25.10 - ATHSCL HEART DISEASE OF [place] CORONARY ARTERY W/O ANG PCTRS Status: Chronic - Plan cont current plan of care plan as per cardiology * . - Discharge Day Encounter end time: 09:20
[2018-07-11] MEDS ORDERED: PROPOFOL 20 ML ONE (10:56)
[2018-07-11] MEDS: Apixaban 5 MG TAB PO SCH (13:57)
[2018-07-11 15:53] VITALS: TEMP 97.3
[2018-07-11 17:59] VITALS: BP 127/77
[2018-07-11] MEDS ORDERED: Famotidine 20 MG TAB PO SCH (21:00)
--- NOTE | 2018-07-12 05:46 | DIS ---
DATE OF ADMISSION: 07/09/2018 DATE OF DISCHARGE: 07/11/2018 PRIMARY CARE PHYSICIAN: Dr. Padgett. PRIMARY MARKETING REPORTING ANALYST: Dr. Quijano. REASON FOR ADMISSION: Chest pain and new onset congestive heart failure. DISCHARGE DIAGNOSES: 1. 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 2. Paroxysmal atrial fibrillation, resolved, status post cardioversion. 3. Chronic renal failure, stage 3. 4. Chronic anticoagulation. 5. Diabetes mellitus, type 2. 6. Hypertension. 7. Coronary artery disease. PROCEDURES: 1. Nuclear medicine stress test showing no evidence for ischemia, but evidence for a scar or infarct involving the septum with septal dyskinesia. 2. Echocardiogram showing an ejection fraction of 30% to 35%. 3. Electrical cardioversion. CONSULTATIONS: Dr. Anderson for Dr. Quijano. HOSPITAL COURSE: This is a 78-year-old white male with a known history of mild coronary artery disease but no catheterization more than 10 years and negative stress test last year, history of paroxysmal atrial fibrillation, does not need to bother him too often. However, he came in with 2 months of increasing shortness of breath mostly with exertion and persistent palpitations just for the last couple of weeks. He then developed substernal chest pressure/pain that brought him to the emergency room. In the ER he was found to have have atrial fibrillation with a high normal rate. He was noted to have an elevated brain natriuretic peptide. He was given Lasix. Dr. Anderson was consulted for Dr. Quijano. He ordered a nuclear medicine stress test with above results. Dr. Quijano did evaluate the patient. Echocardiogram showing a reduced ejection fraction. The patient was diuresed with IV Lasix overnight and then switched to oral Lasix with improvement in symptom. He was taken down to the label stamper for electrical cardioversion which was successful. On the day of discharge, he was observed during the day and remained in sinus rhythm, though with some bradycardia and Dr. Quijano gave him a dose of Entresto and watched him for an hour to make sure his vital signs remained stable. Patient's blood pressure and pulse remained stable with the Entresto. At which point, he is being discharged home. Dr. Quijano has given him a month of the Entresto medication, but he did have some bradycardia during his hospitalization. His amlodipine was stopped and he was not given carvedilol due to the low pulse rate. Patient was not given an DEZ inhibitor as well due to his chronic renal failure. He was able to tolerate a small dose. This can be managed as an outpatient. DISCHARGE MANAGEMENT: Discharged home. ACTIVITY: As tolerated. DIET: Diabetic fluid-restricted low-sodium diet. FOLLOWUP: Follow up with Dr. Pretty on July 30 at 1:[address] Quijano in 1 week. DISCHARGE MEDICATIONS: 1. Entresto as per Dr. Quijano's recommendations. 2. Alprazolam 0.5 mg at night. 3. Eliquis 5 mg twice a day. 4. Glipizide 5 mg at night. 5. Isosorbide mononitrate extended release 30 mg at night. 6. Nitroglycerin as needed for chest pain. 7. Simvastatin 20 mg at night. Job ID: [id number] MTDD
--- NOTE | 2018-07-12 08:26 | OP ---
DATE OF PROCEDURE: 07/11/2018 PROCEDURE PERFORMED: Transesophageal echo. INDICATION FOR PROCEDURE: A 78-year-old gentleman with paroxysmal atrial fibrillation. DESCRIPTION OF PROCEDURE: The patient was taken to the PACU. The patient sedated by Anesthesiology. A transesophageal probe was placed into the distal esophagus and stomach. Echocardiographic images were obtained. The transesophageal probe was removed. FINDINGS: 1. Normal left systolic function. 2. Left atrial enlargement. 3. Left ventricle is mildly dilated. 4. Mild aortic regurgitation. 5. Mild mitral regurgitation. 6. Mild tricuspid regurgitation. 7. No thrombus is noted in the left atrial or left atrial appendage. 8. Atherosclerotic debris in the descending aorta. IMPRESSION: No formed thrombus in the left atrial or left atrial appendage. Job ID: [id number]
--- NOTE | 2018-07-12 08:28 | OP ---
DATE OF PROCEDURE: 07/11/2018 PROCEDURE PERFORMED: Electrocardioversion. INDICATIONS FOR PROCEDURE: This is a 78-year-old gentleman with paroxysmal atrial fibrillation. DESCRIPTION OF PROCEDURE: The patient was taken to the PACU. The patient was sedated by the Anesthesiology. The patient was shocked with 200 joules of synchronized electricity. The patient converted to normal sinus rhythm. IMPRESSION: Successful electrocardioversion. Job ID: [id number]
[2018-07-12] MEDS ORDERED: Sacubitril 24.5 MG/Valsartan 25.5 MG TABLET PO SCH (09:00)
== END 2018-07-11 17:49 | disposition home or self-care (01) ==
LOC: ERS 23:01 → ERHOLD 07-09 02:15 → 2SW 07-09 13:56
PROVIDERS: ADMIT Internal Medicine; ATTEND Internal Medicine
PROC: 5A2204Z Restoration of Cardiac Rhythm, Single (ICD-10-PCS; principal; 2018-07-11)
PROC: B245ZZ4 Ultrasonography of Left Heart, Transesophageal (ICD-10-PCS; 2018-07-11)
DX: I13.0 Hypertensive heart and chronic kidney disease with heart failure and stage 1 through stage 4 chronic kidney disease, or unspecified chronic kidney disease (principal); I50.41 Acute combined systolic (congestive) and diastolic (congestive) heart failure; N18.3 Chronic kidney disease, stage 3 (moderate); I48.0 Paroxysmal atrial fibrillation; E11.22 Type 2 diabetes mellitus with diabetic chronic kidney disease; I25.10 Atherosclerotic heart disease of native coronary artery without angina pectoris; E78.5 Hyperlipidemia, unspecified; F41.9 Anxiety disorder, unspecified; Z95.5 Presence of coronary angioplasty implant and graft; Z79.01 Long term (current) use of anticoagulants; Z79.84 Long term (current) use of oral hypoglycemic drugs; Z79.899 Other long term (current) drug therapy
CPT/HCPCS: 71045 ×2; 78452; 80048; 80053; 82550; 82962 ×3; 83690; 83880; 84484 ×3; 85025 ×2; 93005; 93017; 93306; 93312; 96374; 99285; A9500; G0378 ×2; 36415; 36416; J0153; J1940; J2704

== ENCOUNTER 2018-07-14 08:44 | Emergency (ER) | payer MEDICARE | END 2018-07-14 10:24 | disposition home or self-care (01) | LOC: ERS 08:44 | DX: I48.91 Unspecified atrial fibrillation (principal); F41.9 Anxiety disorder, unspecified; I10 Essential (primary) hypertension; Z79.899 Other long term (current) drug therapy | CPT/HCPCS: 93005 ==

== ENCOUNTER 2018-07-24 11:26 | Observation (INO) | payer MEDICARE ==
[2018-07-24 12:48] LABS: PTT 32.3 SEC (22.9-36.1); Prothrombin Time 13.6 SEC (12.0-14.7)
[2018-07-24] MEDS ORDERED: PHENYLEPHRINE-NS 100 MCG/ML 10 ML SYRINGE ONE (15:10)
[2018-07-24] MEDS ORDERED: PROPOFOL 200 MG/20 ML VIAL ONE (15:10)
[2018-07-24] MEDS ORDERED: Midazolam HCl 2 mg/2 ml Vial ONE (15:21)
[2018-07-24] MEDS ORDERED: Fentanyl 100 MCG/2 ML VIAL ONE (15:21)
[2018-07-24] MEDS ORDERED: Propofol 500 MG/50 ML VIAL ONE (15:22)
[2018-07-24] MEDS ORDERED: Potassium Chloride 20 MEQ/100 ML PREMIX BAG ONE (15:22)
[2018-07-24] MEDS ORDERED: Ondansetron HCl/PF 4 MG/2 ML Vial IVP PRN (18:07)
[2018-07-24] MEDS ORDERED: Meperidine HCl/PF 25 MG/ML VIAL SLOW IVP PRN (18:07)
[2018-07-24 19:44] VITALS: BMI 24.9
[2018-07-24] MEDS ORDERED: Nitroglycerin 0.4 MG TAB (25 Tab Bottle) SL PRN (19:59)
[2018-07-24] MEDS ORDERED: Acetaminophen/Codeine 30-300mg Tablet PO PRN ×2 (20:00)
[2018-07-24] MEDS ORDERED: Atorvastatin Calcium 20 MG TAB PO SCH (21:00)
[2018-07-24] MEDS ORDERED: ALPRAZolam 0.5 MG TAB PO SCH (21:00)
[2018-07-24] MEDS ORDERED: glipiZIDE 5 MG TAB PO SCH (21:00)
[2018-07-24] MEDS ORDERED: Acetaminophen/Codeine 30-300mg Tablet ONE (23:23)
[2018-07-25] MEDS ORDERED: Acetaminophen/Codeine 30-300mg Tablet ONE (06:58)
[2018-07-25 08:47] VITALS: TEMP 98
--- NOTE | 2018-07-25 11:08 | RAD ---
CHEST ONE VIEW: HISTORY: Cardiac device placement. COMPARISON: 07/09/2018 FINDINGS: An AICD/pacer is in place. No pneumothorax. Heart size is mildly enlarged. No focal air space cons olidation. IMPRESSION: Uncomplicated cardiac automatic implantable cardioverter-defibrillator/pacer placement. POS: CET
[2018-07-25] MEDS ORDERED: Cephalexin 250 MG CAP PO SCH (12:00)
[2018-07-25 13:10] VITALS: BP 112/77
[2018-07-25] MEDS ORDERED: Apixaban 5 MG TAB PO SCH (21:00)
--- NOTE | 2018-07-26 03:10 | DIS ---
DATE OF ADMISSION: 07/24/2018 DATE OF DISCHARGE: 07/25/2018 REASON FOR ADMISSION: Atrial fibrillation, sick sinus syndrome, chronic systolic heart failure, and elective biventricular ICD implant. HISTORY OF PRESENT ILLNESS: Mr. Brownlee is a 78-year-old gentleman with prior history of atrial fibrillation, previously suppressed with amiodarone, but was stopped due to marked bradycardia. He had recently undergone cardioversion with very early recurrence and worsening congestive heart failure-like symptoms. He has moderate to severely reduced ejection fraction in addition to a left bundle-branch block on EKG. It was determined that he would likely benefit from biventricular ICD implantation, which was performed on 07/24/2018. He was kept overnight for observation. He is feeling well this morning. He did not have any post procedure complications. He is eager to discharge home. SUBJECTIVE: Mr. Brownlee denies any heart racing palpitations or chest pain. He does have mild discomfort at the implant site, but it is largely not bothersome, has not required any p.r.n. medications to address this pain. He is tolerating p.o. intake well. OBJECTIVE: VITAL SIGNS: Temperature 98.0 degrees, pulse 100, oxygen 94% on room air. Blood pressure is 108/68, respirations 14. GENERAL: The patient is alert and oriented. Speech is clear. Affect is appropriate. NECK: Supple without jugular venous distention. New ICD implant is seen at the left infraclavicular fossa. Site has mild bruising and swelling. Edges of the incision are well approximated with Dermabond, intact at the site. No drainage. There was no obvious complication or hematoma at this time. ABDOMEN: Soft and nontender. EXTREMITIES: Warm and dry to touch without clubbing, cyanosis, or edema. NEUROLOGIC: Nonfocal. DATABASE: EKG: Telemetry showed atrial fibrillation. There is biventricular pacing. When his atrial fibrillation becomes rapid, his intrinsic QRS complex is seen. Chest x-ray was taken this morning and is stable without evidence of pneumothorax or post procedure complications. Device check: Bi-V ICD was checked this morning and there was function seen. Nothing to suggest lead dislodgement or inappropriate function. DISCHARGE INSTRUCTIONS: The patient has received discharge instructions as far as limitations following ICD implant. He understands to take his medications as prescribed and contact our clinic with any post implant questions or concerns. He may have a two-week wound and device check followup and also a three-month in clinic followup. DISCHARGE MEDICATIONS: Resuming home medications of: 1. Imdur at bedtime. 2. Entresto b.i.d. 3. Glipizide at bedtime. 4. Atorvastatin at bedtime. 5. Eliquis 5 mg p.o. b.i.d. He will resume the evening dose on 07/25/2018. Alprazolam 0.5 mg at bedtime. 6. Nitroglycerin sublingual as needed. New prescriptions: 1. Keflex 500 mg p.o. q.6 hours x7 days. 2. Metoprolol succinate 25 mg p.o. daily. CONDITION AT DISCHARGE: Stable. Job ID: [id number]
== END 2018-07-25 11:27 | disposition home or self-care (01) ==
LOC: SDC 11:26 → 2SW 18:07
PROVIDERS: ADMIT Internal Medicine Cardiovascular Disease; ATTEND Internal Medicine Cardiovascular Disease
PROC: 0JH609Z Insertion of Cardiac Resynchronization Defibrillator Pulse Generator into Chest Subcutaneous Tissue and Fascia, Open Approach (ICD-10-PCS; principal; 2018-07-24)
PROC: 02H63KZ Insertion of Defibrillator Lead into Right Atrium, Percutaneous Approach (ICD-10-PCS; 2018-07-24)
PROC: 02HK3KZ Insertion of Defibrillator Lead into Right Ventricle, Percutaneous Approach (ICD-10-PCS; 2018-07-24)
DX: I48.1 Persistent atrial fibrillation (principal); I42.8 Other cardiomyopathies; I11.0 Hypertensive heart disease with heart failure; I50.22 Chronic systolic (congestive) heart failure; I44.7 Left bundle-branch block, unspecified; I49.5 Sick sinus syndrome; Z79.01 Long term (current) use of anticoagulants; Z79.899 Other long term (current) drug therapy; E11.9 Type 2 diabetes mellitus without complications
CPT/HCPCS: 33225; 33249; 36005; 71045; 75820; 82962 ×2; 85610; 85730; 93005; 93798; C1769; 36415; 36416; 93010; 96365; 96366; C1777; C1882; C1898; C1900; G0378; J0690; J2250; J2704; J3010; J3480; J3490

== ENCOUNTER 2018-08-19 19:22 | Observation (INO) | payer MEDICARE ==
[~2018-08-19 19:22] MED LIST: ISOVUE-370 76%-LOCM 1 ML ONE
--- NOTE | 2018-08-19 19:38 | RAD ---
EXAM: Portable chest PROVIDED CLINICAL HISTORY: Chest pain COMPARISON: 07/25/2018 FINDINGS: Cardiac and mediastinal silhouette is within normal limits. No focal consolidation, pleural fluid or pneumothorax evident. Left subclavian cardiac pacing device is redemonstrated. IMPRESSION: No evidence for an acute cardiopulmonary process.
[2018-08-19 20:05] LABS: #Basophils 0.1 thou/uL (0.0-0.2); #Eosinphils 0.3 thou/uL (0.0-0.7); #Lymphocytes 5.6 thou/uL (1.20-3.40); #Monocytes 1.3 thou/uL (0.11-0.59); #Neutrophils 4.3 thou/uL (1.40-6.50); %Eosinophils 2.3 % (0.0-10.0); %Lymphocytes 48.3 % (21.0-51.0); %Monocytes 11.5 % (0.0-10.0); %Neutrophils 36.9 % (42.0-75.0); Hemoglobin 14.9 g/dL (14.0-18.0); Mean Corpuscular HGB CONC 31.9 g/dL (32.0-36.0); Mean Corpuscular Hemoglobin 30.6 pg (27.0-31.0); Mean Corpuscular Volume 95.9 fL (78.0-98.0); Mean Platelet Volume 8.5 fL (7.4-10.4); Platelet Count 210 thou/uL (130-400); RBC Distribution Width 12.8 % (11.5-14.5); Red Blood Cell (RBC) Count 4.88 mill/uL (4.70-6.10); White Blood Cell (WBC) Count 11.7 thou/uL (4.8-10.8)
[2018-08-19 20:11] LABS: INR-International Normal Ratio 1.3; PTT 32.9 SEC (22.9-36.1); Prothrombin Time 15.8 SEC (12.0-14.7)
[2018-08-19 20:18] LABS: ALT (SGPT) 29 U/L (8-55); AST (SGOT) 23 U/L (5-34); Albumin 4.3 g/dL (3.4-4.8); Alkaline Phosphatase 75 U/L (40-150); Anion Gap 15 mmol/L (10-20); BUN (Urea Nitrogen) 29 mg/dL (8.4-25.7); Bilirubin, Total 0.9 mg/dL (0.2-1.2); CK (CPK) 104 U/L (30-200); Calc. Creatinine Clearance 0 mL/min (70-130); Calcium 10.9 mg/dL (7.8-10.44); Carbon Dioxide 23 mmol/L (23-31); Chloride 103 mmol/L (98-107); Estimated GFR-MDRD 36; Globulin 2.7 g/dL (2.4-3.5); Glucose 157 mg/dL (83-110); Lipase 45 U/L (8-78); Potassium 4.8 mmol/L (3.5-5.1); Sodium 136 mmol/L (136-145)
[2018-08-19] MEDS ORDERED: Morphine 4 MG/ML VIAL ONE (20:21)
[2018-08-19] MEDS ORDERED: Aspirin Chewable 81 MG TAB ONE (20:22)
--- NOTE | 2018-08-19 21:17 | CT ---
EXAM: CT pulmonary angiogram with IV contrast and 3-D MIP reconstructions PROVIDED CLINICAL HISTORY: Chest pain COMPARISON: None FINDINGS: There is no evidence for central or segmental pulmonary embolus. The lungs are free of significant op acity. No pleural fluid or pneumothorax apparent. No evidence for thoracic lymph node enlargement. The airway appears patent and of normal caliber. The visualized portions of the upper abdomen demonst rate no acute findings. The osseous structures demonstrate no concerning lytic or blastic lesions. IMPRESSION: No evidence for central or segmental pulmonary embolus.
[2018-08-19] MEDS ORDERED: Metoprolol Tartrate 5 MG/5 ML VIAL ONE (21:45)
[2018-08-20 00:26] LABS: Troponin I Less than 0.010 ng/mL (< 0.028)
[2018-08-20] MEDS ORDERED: Ondansetron ODT 4 MG TAB SL PRN (00:29)
[2018-08-20] MEDS ORDERED: Acetaminophen 325 MG TAB PO PRN ×2 (00:29→09:37)
[2018-08-20] MEDS ORDERED: Ondansetron PF 4 MG/2 ML Vial IVP PRN (00:29)
[2018-08-20 00:33] VITALS: BMI 24.1
[2018-08-20] MEDS ORDERED: Nitroglycerin 0.4 MG TAB (25 Tab Bottle) SL PRN (00:40)
[2018-08-20] MEDS ORDERED: ALPRAZolam 0.5 MG TAB PO SCH (00:45)
[2018-08-20] MEDS: Sodium Chloride 0.9% 1,000 ML IV SCH ×2 (01:01→09:58)
[2018-08-20 02:47] LABS: Troponin I 0.011 ng/mL (< 0.028)
[2018-08-20] MEDS: Dronedarone HCl 400 MG TAB PO SCH ×2 (08:27→16:39)
[2018-08-20] MEDS ORDERED: Sodium Chloride 0.9% 1,000 ML IV SCH (08:47)
[2018-08-20] MEDS ORDERED: Dextrose 5% in Water 1,000 ML IV PRN (08:47)
[2018-08-20] MEDS ORDERED: Dextrose 50% Abboject 50 ML SYRINGE SLOW IVP PRN (08:47)
[2018-08-20] MEDS ORDERED: Insulin Regular 300 UNITS/3 ML VIAL SC PRN ×2 (08:49)
[2018-08-20] MEDS ORDERED: Apixaban 5 MG TAB PO SCH (09:00)
[2018-08-20] MEDS ORDERED: Calcium Carbonate 500 MG ChewTAB PO PRN (09:37)
[2018-08-20] MEDS ORDERED: Senokot S 8.6-50 MG TAB PO PRN (09:37)
--- NOTE | 2018-08-20 10:02 | HP ---
CHIEF COMPLAINT: Chest discomfort. HISTORY OF PRESENT ILLNESS: The patient is a 78-year-old male with chronic atrial fibrillation, on anticoagulation, coronary artery disease, diabetes mellitus type 2, hypertension, and cardiomyopathy, presented to the emergency room with chest discomfort that started around 5:30 p.m. yesterday while he was resting. The pain was getting worse on deep breathing. He denies any radiation. The pain was moderate in intensity, constant, that improved after IV morphine in the emergency room. He was short of breath. He has been sleeping in the recliner over the last 3 weeks. He has been monitoring his heart rate over the last 3 to 4 days. The heart rate has been running in 130s to 140s per the patient report. He is compliant with anticoagulation. He denies any heartburn, belching, burping, cough, wheezing, or worsening lower extremity swelling. PAST MEDICAL HISTORY: 1. Chronic atrial fibrillation, was diagnosed in February 2017. 2. Sick sinus syndrome. 3. Chronic systolic heart failure, ejection fraction 30% to 35%. 4. History of symptomatic bradycardia in the setting of amiodarone and carvedilol. 5. Hypertension. 6. Diabetes mellitus, type 2. 7. Chronic kidney disease. 8. History of pancreatic cancer. 9. Left bundle-branch block. PAST SURGICAL HISTORY: 1. Recent AICD placement. 2. Whipple surgery for pancreatic cancer. 3. Tonsillectomy. 4. Cardiac catheterization. 5. Cardioversion. ALLERGIES: THE PATIENT IS ALLERGIC TO AMIODARONE. CURRENT MEDICATIONS: 1. Sublingual nitroglycerin as needed. 2. Xanax 0.5 mg at bedtime. 3. Eliquis 5 mg b.i.d. 4. Lipitor 20 mg at bedtime. 5. Multaq 400 mg b.i.d. 6. Glipizide 5 mg at bedtime. 7. Entresto 24/ one tablet b.i.d. SOCIAL HISTORY: The patient currently lives at home with his family. He is . Drinks alcohol socially. No smoking or drug use. REVIEW OF SYSTEMS: All other review of systems were reviewed and were found negative. FAMILY HISTORY: Negative for premature coronary artery disease. PHYSICAL EXAMINATION: VITAL SIGNS: Temperature 98.2, respirations of 16, pulse rate of 133, blood pressure 124/76, and O2 saturation of 95% on room air. GENERAL: A 78-year-old male, in no apparent distress at rest. HEENT: Head, atraumatic and normocephalic. Sclerae are anicteric. Moist mucous membranes. No oral lesion. NECK: Supple. No JVD appreciated. No carotid bruit. LUNGS: Clear to auscultation bilaterally. No wheezing, rales, or rhonchi. HEART: S1 and S2 present. Regular rate and rhythm. No rubs or gallops appreciated. ABDOMEN: Soft and nontender. Bowel sounds present. EXTREMITIES: Trace edema in bilateral lower extremity. No calf tenderness. SKIN: Warm and dry. LYMPH NODES: No palpable lymph nodes in the neck. PERIPHERAL VASCULAR: Radial pulses palpable bilaterally. MUSCULOSKELETAL: No joint swelling or tenderness. LABORATORY FINDINGS: Troponin negative. BNP 651. Creatinine 1.82 with BUN 29, sodium 136, and potassium 4.8. WBC 11.7 with hemoglobin 14.9, platelet 210. IMAGING STUDIES: Chest x-ray by my review was negative for infiltrate or edema. CT angiogram of the chest by my review was negative for pulmonary embolism. EKG by my review showed atrial fibrillation with rapid ventricular response with paced rhythm. IMPRESSION: 1. Chest discomfort, probably secondary to tachyarrhythmia. 2. Atrial fibrillation with rapid ventricular response. 3. Chronic systolic heart failure, ejection fraction 30% to 35% range, status post recent automatic implantable cardioverter-defibrillator. 4. Sick sinus syndrome. 5. Hypertension. 6. Diabetes mellitus, type 2. 7. Hyperlipidemia. 8. Anxiety. 9. Chronic kidney disease, stage 3. 10. Mild leukocytosis, unlikely to be infectious. PLAN: The patient will be monitored on the telemetry unit. Serial troponins have been negative. We will keep the patient n.p.o. The patient was scheduled for CHERI cardioversion tomorrow. We will consult Cardiology. We will continue anticoagulation with Eliquis, Multaq. Resume glipizide tonight. Continue Xanax. Restart Entresto and Lipitor. Change IV fluids to KVO and later discontinue. Insulin sliding scale. Plan was discussed with the patient in detail. He stated understanding. CODE STATUS: Full code. Surrogate decision maker, the patient makes his own decision with the help of his family. Job ID: [id number]
[2018-08-20] MEDS ORDERED: PROPOFOL 200 MG/20 ML VIAL ONE (10:54)
--- NOTE | 2018-08-20 15:47 | CON ---
DATE OF CONSULTATION: HISTORY: This patient is a 78-year-old gentleman, who presents for evaluation of chest discomfort and dyspnea. The patient has a history of nonischemic cardiomyopathy and underwent a cardiac catheterization approximately 8 years ago. He apparently was found to have no significant coronary artery disease.The patient was admitted a year ago with severe bradycardia and had placement of an AICD. The patient also had previously been treated for atrial fibrillation with amiodarone. This medicine made him extremely weak. He has been off this medication. The patient was seen again a month ago with chest pain. He was noted to be in rapid atrial fibrillation. The patient underwent electrocardioversion. The patient presents once again with recurrent chest discomfort. He noticed he had a midsternal chest pain that lasted approximately two hours. This discomfort was made worse whenever he took a deep breath. The patient received morphine with resolution of his chest discomfort. The patient was noted to be in a rapid heart rate. The patient reports continued discomfort when he takes a deep breath. PAST MEDICAL HISTORY: 1. Cardiomyopathy. 2. Atrial fibrillation. 3. Hypertension. 4. History of pancreatic carcinoma. 5. Diabetes mellitus. 6. Chronic renal insufficiency. PAST SURGICAL HISTORY: Whipple surgery, pancreatic surgery, and tonsillectomy. SOCIAL HISTORY: Nonsmoker. FAMILY HISTORY: No strong family history of heart disease. ALLERGIES: NO KNOWN DRUG ALLERGIES. MEDICATIONS: 1. Multaq 400 b.i.d. 2. Lipitor 20 at bedtime. 3. Eliquis 5 b.i.d. 4. Xanax 0.5 at bedtime. 5. Entresto 24/26 daily. ALLERGIES: HE IS ALLERGIC TO AMIODARONE. SOCIAL HISTORY: He is a nonsmoker. FAMILY HISTORY: No strong family history of heart disease. REVIEW OF SYSTEMS: Ten-point system otherwise unremarkable. No history of easy bruising or bleeding. PHYSICAL EXAMINATION: GENERAL: This is a well-developed gentleman, in no acute distress. VITAL SIGNS: Blood pressure of 116/75, heart rate is 130. NECK: No jugular venous distention. LUNGS: Clear to auscultation. HEART: Regular rate and rhythm. Normal S1, S2. ABDOMEN: Nondistended. EXTREMITIES: Show no edema. VASCULAR: Radial pulses are 2+. LABORATORY DATA: Sodium was 136, potassium 3.8, chloride 103, bicarbonate 23, BUN 29, creatinine 1.82. His EKG revealed him to have atrial flutter with rapid ventricular response. IMPRESSION: 1. Recurrent atrial flutter. 2. History of cardiomyopathy. 3. Normal coronary arteries. 4. Hypertension. PLAN: This gentleman presents with rapid atrial flutter. The patient will undergo CHERI cardioversion. The risks of the procedure explained to him and he agrees to proceed. Job ID: [id number] MTDD
[2018-08-20 16:20] VITALS: BP 122/76; TEMP 97.3
--- NOTE | 2018-08-20 17:33 | DIS ---
DATE OF ADMISSION: 08/20/2018 DATE OF DISCHARGE: 08/20/2018 DISCHARGE DISPOSITION: Home. FOLLOWUP: 1. Follow up with primary care physician, Dr. Padgett in 1 week. 2. Follow up with Dr. Ronan Quijano in 1 week. The patient was seen and examined on the day of discharge. Denies any new complaints. No chest pain, shortness of breath, palpitations. 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 Ronan Quijano. INPATIENT PROCEDURES: Cardioversion. BRIEF HOSPITAL COURSE: The patient is a 78-year-old male with chronic atrial fibrillation, on anticoagulation; coronary artery disease; diabetes mellitus type 2; hypertension; and congestive heart failure, ejection fraction 30% to 35%; presented to the emergency room with chest discomfort. His workup was consistent with atrial fibrillation with rapid ventricular response. He was evaluated by Cardiology. He underwent cardioversion by Dr. Ronan Quijano. He was advised to continue Multaq and Eliquis. He has been cleared by Cardiology for discharge. Official cardioversion report is pending at this time. FINAL DIAGNOSES: 1. Chest discomfort secondary to tachyarrhythmia. 2. Atrial fibrillation with rapid ventricular response, status post CHERI, cardioversion this admission. 3. Chronic systolic heart failure, ejection fraction 30% to 35% range, status post recent automatic implantable cardioverter-defibrillator. 4. Sick sinus syndrome. 5. Diabetes mellitus, type 2. 6. Hypertension. 7. Hyperlipidemia. 8. Chronic kidney disease, stage 3. 9. Anxiety. 10. Mild leukocytosis, unlikely to be infectious. Plan of care was discussed with the patient in detail. He stated understanding. DISCHARGE MEDICATIONS: Same as admission medication. Job ID: [id number]
[2018-08-20] MEDS ORDERED: Atorvastatin Calcium 20 MG TAB PO SCH (21:00)
[2018-08-20] MEDS ORDERED: glipiZIDE 5 MG TAB PO SCH (21:00)
[2018-08-20] MEDS ORDERED: ALPRAZolam 1 MG TAB PO SCH (21:00)
--- NOTE | 2018-08-21 08:07 | CON ---
DATE OF CONSULTATION: 08/20/2018 ELECTROPHYSIOLOGY FOLLOWUP NOTE.: CONSULTING PHYSICIAN: Ronan Quijano MD SUBJECTIVE: Mr. Brownlee was admitted on with atrial fibrillation/flutter that is with rapid rates. He was planned to have a CHERI-guided cardioversion by Dr. Quijano due to generalized discomforts and chest pains. Currently, he is doing better, on Multaq initiated. Rhythm was suggestive of possibly typical atrial flutter by morphology. He has underwent CHERI-guided cardioversion, restoring sinus rhythm. PAST MEDICAL HISTORY: Significant for CHF and cardiomyopathy, history of pancreatic carcinoma, diabetes, chronic renal insufficiency, hypertension, atrial fibrillation noted in the past, persisting since his ICD implant. SOCIAL HISTORY: The patient is smoking, EtOH, or drug abuse. FAMILY HISTORY: Not contributory. OBJECTIVE DATA: VITAL SIGNS: Blood pressure is 122/76, heart rate 76, respiratory rate 16, and temperature 97.3 degrees Fahrenheit. GENERAL: Alert and oriented man, in no apparent distress. NECK: Supple. Jugular veins not distended. CHEST: Coarse without crackles. HEART: Sounds are irregularly irregular. S1 and S2 are variable. No murmur or gallop. ABDOMEN: Benign. Bowel sounds positive. LOWER EXTREMITIES: Without edema, clubbing, or cyanosis. Left precordial ICD insertion site is healing adequately. ASSESSMENT AND PLAN: Mr. Brownlee is a 78-year-old man with history of congestive heart failure and cardiomyopathy, recent biventricular implantable cardioverter-defibrillator implantation, but persistent atrial fibrillation rapid rates. He has been started on Multaq, and a CHERI-guided cardioversion is planned. I agree with the current management by Dr. Quijano. He initiated Multaq and also Eliquis for anticoagulation. We will make him return to the office at the near date to further discussion of ablation options. Consideration for isthmus-dependent flutter ablation, AV wilner ablation, or pulmonary venous isolation could be all entertained. For now, continue anticoagulation as well. Follow in the office here in the near future. Thank you again for letting me to participate in the care of this patient. Job ID: [id number]
--- NOTE | 2018-08-21 08:20 | OP ---
DATE OF PROCEDURE: 08/20/2018 PROCEDURE PERFORMED: Transesophageal echocardiogram. INDICATION: A 78-year-old gentleman with paroxysmal atrial fibrillation. DESCRIPTION OF PROCEDURE: The patient was taken to the PACU. The patient was sedated by Anesthesiology. A transesophageal probe was placed into the distal esophagus and stomach. Echocardiographic images were obtained. FINDINGS: 1. Mild to moderate decrease in left ventricular systolic function. 2. Normal mitral and aortic valves. 3. Mild mitral regurgitation. 4. Mild aortic regurgitation. 5. Mild tricuspid regurgitation. 6. No thrombus noted in the left atrium or left atrial appendage. 7. Pacemaker wire was noted in the right ventricle. 8. Atherosclerotic debris in the descending aorta. IMPRESSION: No formed thrombus in the left atrium or left atrial appendage. Job ID: [id number]
--- NOTE | 2018-08-21 08:21 | OP ---
DATE OF PROCEDURE: 08/20/2018 PROCEDURE PERFORMED: Electrical cardioversion. INDICATION: This is a 78-year-old gentleman with paroxysmal atrial fibrillation. DESCRIPTION OF PROCEDURE: The patient was taken to the PACU. The patient was sedated by Anesthesiology. The patient was shocked with 35 joules of synchronized electricity through the defibrillator. IMPRESSION: Successful electrocardioversion. Job ID: [id number]
--- NOTE | 2018-08-24 13:23 | EKG ---
Test Reason : Blood Pressure : / mmHG Vent. Rate : 127 BPM Atrial Rate : 125 BPM P-R Int : 000 ms QRS Dur : 138 ms QT Int : 372 ms P-R-T Axes : 000 010 166 degrees QTc Int : 540 ms Ventricular-paced rhythm Biventricular pacemaker detected Abnormal ECG Left bundle branch block Compared to 07/14/2018 Confirmed by LAURENT LOPEZ, ZAKI ([id number]), copy editor PILLO PEARSON ([id number]) on 08/24/2018 1:23:15 PM Referred By: Confirmed By:ZAKI MANCILLA MD
--- NOTE | 2018-08-24 13:24 | EKG ---
Test Reason : Blood Pressure : / mmHG Vent. Rate : 123 BPM Atrial Rate : 122 BPM P-R Int : 000 ms QRS Dur : 136 ms QT Int : 386 ms P-R-T Axes : 000 011 158 degrees QTc Int : 552 ms Ventricular-paced rhythm Biventricular pacemaker detected Abnormal ECG #2 no changes Confirmed by ZAKI MANCILLA MD ([id number]), script editor PILLO PEARSON ([id number]) on 08/24/2018 1:24:06 PM Referred By: Confirmed By:ZAKI MANCILLA MD
== END 2018-08-20 17:34 | disposition home or self-care (01) ==
LOC: ERS 19:22 → 2SW 08-20 00:24
PROVIDERS: ADMIT Family Medicine; ATTEND Family Medicine
PROC: B245ZZ4 Ultrasonography of Left Heart, Transesophageal (ICD-10-PCS; principal; 2018-08-19)
PROC: 5A2204Z Restoration of Cardiac Rhythm, Single (ICD-10-PCS; 2018-08-19)
DX: I48.0 Paroxysmal atrial fibrillation (principal); I08.3 Combined rheumatic disorders of mitral, aortic and tricuspid valves; I42.0 Dilated cardiomyopathy; I13.0 Hypertensive heart and chronic kidney disease with heart failure and stage 1 through stage 4 chronic kidney disease, or unspecified chronic kidney disease; E11.9 Type 2 diabetes mellitus without complications; N18.3 Chronic kidney disease, stage 3 (moderate); I50.22 Chronic systolic (congestive) heart failure; E78.5 Hyperlipidemia, unspecified; F41.9 Anxiety disorder, unspecified; D72.829 Elevated white blood cell count, unspecified; I25.10 Atherosclerotic heart disease of native coronary artery without angina pectoris; I49.5 Sick sinus syndrome; I44.7 Left bundle-branch block, unspecified; Z79.01 Long term (current) use of anticoagulants; Z79.899 Other long term (current) drug therapy; Z88.8 Allergy status to other drugs, medicaments and biological substances; Z95.810 Presence of automatic (implantable) cardiac defibrillator
CPT/HCPCS: 71045; 71275; 80053; 82550; 82962; 83690; 83880; 84484 ×3; 85025; 85610; 85730; 92960; 93005; 93312; 94760; 96361 ×2; 96374; 96375; 99285; G0378 ×2; 36415; 36416; J2270; J2704; Q9966

== ENCOUNTER 2019-01-22 10:04 | Observation (INO) | payer MEDICARE ==
[2019-01-22] MEDS ORDERED: Lidocaine 4% Cream 5 GM TUBE w/ Tegaderm ONE (10:10)
--- NOTE | 2019-01-22 10:29 | CT ---
CT BRAIN NONCONTRAST: DATE: 01/22/2019 HISTORY: 78-year-old male status post head trauma due to fall. Dr. Culp gave the results verbally by telephone to Dr. Rinaldi of the emergency Department at 10:24 AM on 01/22/2019 FINDINGS: There is no evidence of acute intra-axial or extra-axial hemorrhage. There is no midline shift or any other mass effect. There is no extra-axial fluid collection. There is no evidence of obstructive hydrocephalus. Calvarium is intact. IMPRESSION: No acute intracranial findings.
[2019-01-22 10:35] LABS: #Basophils 0.1 thou/uL (0.0-0.2); #Eosinphils 0.2 thou/uL (0.0-0.7); #Lymphocytes 3.6 thou/uL (1.20-3.40); #Monocytes 1.2 thou/uL (0.11-0.59); #Neutrophils 8.6 thou/uL (1.40-6.50); %Basophils 0.6 % (0.0-1.0); %Eosinophils 1.2 % (0.0-10.0); %Lymphocytes 26.3 % (21.0-51.0); %Monocytes 8.9 % (0.0-10.0); Hemoglobin 15.1 g/dL (14.0-18.0); Mean Corpuscular HGB CONC 33.2 g/dL (32.0-36.0); Mean Corpuscular Hemoglobin 32.3 pg (27.0-31.0); Mean Corpuscular Volume 97.4 fL (78.0-98.0); Mean Platelet Volume 8.4 fL (7.4-10.4); Platelet Count 264 thou/uL (130-400); RBC Distribution Width 12.6 % (11.5-14.5); Red Blood Cell (RBC) Count 4.66 mill/uL (4.70-6.10); White Blood Cell (WBC) Count 13.7 thou/uL (4.8-10.8)
[2019-01-22 10:52] LABS: ALT (SGPT) 45 U/L (8-55); AST (SGOT) 40 U/L (5-34); Albumin 4.2 g/dL (3.4-4.8); Alkaline Phosphatase 66 U/L (40-110); Anion Gap 14 mmol/L (10-20); BUN (Urea Nitrogen) 23 mg/dL (8.4-25.7); Calc. Creatinine Clearance 0 mL/min (70-130); Calcium 9.8 mg/dL (7.8-10.44); Carbon Dioxide 24 mmol/L (23-31); Chloride 105 mmol/L (98-107); Estimated GFR-MDRD 35; Globulin 2.6 g/dL (2.4-3.5); Glucose 120 mg/dL (83-110); Potassium 4.1 mmol/L (3.5-5.1); Protein, Total 6.8 g/dL (5.8-8.1); Sodium 139 mmol/L (136-145)
[2019-01-22 13:19] LABS: PTT 25.2 SEC (22.9-36.1); Prothrombin Time 13.1 SEC (12.0-14.7)
--- NOTE | 2019-01-22 13:47 | RAD ---
PORTABLE CHEST: COMPARISON: A 08/19/2018 study. HISTORY: Dizziness, fall, chest pain. FINDINGS: Heart size within normal limits. A pacemaker is present. The lungs are clear of any infiltrative pr ocess. IMPRESSION: No active intrathoracic disease. POS: TPC
[2019-01-22 18:28] VITALS: BMI 23.4
[2019-01-22] MEDS ORDERED: Dextrose 50% Abboject 50 ML SYRINGE SLOW IVP PRN (18:29)
[2019-01-22] MEDS ORDERED: Dextrose 5% in Water 1,000 ML IV PRN (18:29)
[2019-01-22] MEDS ORDERED: hydrALAZINE 20 MG/ML VIAL SLOW IVP PRN (18:29)
[2019-01-22] MEDS ORDERED: Labetalol HCl 100 MG/20 ML VIAL SLOW IVP PRN (18:29)
[2019-01-22] MEDS ORDERED: HumaLOG 300 UNITS/3 ML VIAL SC PRN ×2 (18:29)
[2019-01-22] MEDS ORDERED: Ondansetron PF 4 MG/2 ML Vial IVP PRN (18:29)
[2019-01-22] MEDS ORDERED: Sodium Chloride 0.9% 1,000 ML IV SCH (18:30)
[2019-01-22] MEDS: Famotidine/PF 20 mg/2ml Vial SLOW IVP SCH (20:22)
[2019-01-22] MEDS: Dextrose 5 % And 0.9 % NaCl 1,000 ML IV SCH (20:22)
[2019-01-22] MEDS ORDERED: ALPRAZolam 0.5 MG TAB PO SCH (21:30)
[2019-01-22 21:51] LABS: CKMB 4.8 ng/mL (0-6.6)
--- NOTE | 2019-01-23 01:07 | HP ---
PRIMARY CARE PHYSICIAN: Dajuan Montalvo MD COUNTER WEIGHER: Ronan Qujiano MD CHIEF COMPLAINT: Passed out. HISTORY OF PRESENT ILLNESS: Mr. Brownlee is a pleasant 78-year-old gentleman, who has a history of hypertension and diabetes mellitus as well as atrial fibrillation. He was in his usual state of health until today. Last night, he was taking a prep for a screening colonoscopy. He had taken completely the prep, when he got up in the middle of night to go to the bathroom, he says that he got dizzy, felt lightheaded and then fell. There was concern that he may have passed out and for this reason, he was brought to the hospital for evaluation. It was reported en route that he was very hypotensive. He was given IV fluid resuscitation and has since improved. He says prior to this event, he was feeling fine. He denied any chest pain. No palpitations. He did notice some nausea after he "fell," passed out. But otherwise no complaints. He says his heart has been "fine." He denies any fevers, chills, etc. REVIEW OF SYSTEMS: All systems were reviewed and are negative except for that mentioned in the history of present illness. PAST MEDICAL HISTORY: Significant for atrial fibrillation, sick sinus syndrome, chronic systolic heart failure with an EF of 30% to 35%, hypertension, diabetes mellitus, chronic kidney disease, pancreatic cancer. PAST SURGICAL HISTORY: He had an AICD placed, a Whipple's procedure for pancreatic cancer, tonsillectomy, cardiac cath, and he has had a cardioversion. ALLERGIES: TO AMIODARONE. SOCIAL HISTORY: He is a nonsmoker and nondrinker. He is . Code status, full code. FAMILY HISTORY: No history of any heritable diseases. CURRENT MEDICATIONS: Include; 1. Nitrostat 0.4 mg sublingual p.r.n. 2. Glipizide 5 mg p.o. daily. 3. Multaq 400 mg one tablet twice a day. 4. Entresto one twice a day. 5. Atorvastatin 20 mg daily. 6. Alprazolam 0.5 mg twice daily. 7. Eliquis 5 mg p.o. twice a day. PHYSICAL EXAMINATION: GENERAL: He is alert and oriented. He appears to be in no acute distress. He is well developed and well nourished. VITAL SIGNS: His blood pressure is approximately 116/70, heart rate in the 70s, respiratory rate of 16, and he is afebrile. HEENT: Pupils are equal, round, and reactive. Extraocular muscles are intact. His sclerae anicteric. Throat, no erythema, no exudates. NECK: No adenopathy. No bruits. LUNGS: Clear to auscultation. There is no wheezing, no rales, no rhonchi. CARDIOVASCULAR: He has a normal S1, S2. I did not appreciate an S3. No S4. Slight grade 2/6 systolic murmur. ABDOMEN: Soft, nontender, and nondistended. Positive for bowel sounds. No rebound. No guarding. EXTREMITIES: There is trace edema. No calf tenderness. No joint effusions. NEUROLOGIC: The exam is grossly nonfocal. SKIN AND INTEGUMENT: No skin changes. No rashes. LABORATORY DATA AND IMAGING: The patient had a CT scan of the brain, which was negative for any acute intracranial process or bleed. Chest x-ray was essentially normal, some mild cardiomegaly, and some mild increased pulmonary vascular markings. This is by my reading. Lab work, sodium is 139, potassium 4.1, chloride is 105, CO2 is 24, BUN of 23, creatinine 1.89, glucose is 120. INR is 1.0. White blood cell count is 13.7, hemoglobin 15.1, hematocrit is 45.4, and platelet count is 264. Troponin is less than 0.010. ASSESSMENT: 1. This is a pleasant 78-year-old gentleman, who suffered a syncopal episode. This is in the setting of having a bowel prep done. It is possible that he may have suffered some volume depletion as a result of the bowel prep. He also has advanced age and I suspect this is the etiology of the syncope. His troponin was negative. However, as a precaution, he will be placed in observation. We will continue to trend his cardiac enzymes. Consider an echocardiogram. Monitor him on telemetry. 2. 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 3. Atrial fibrillation. His heart rate is clinically stable and once again, Eliquis is on hold due to the planned colonoscopy. 4. Diabetes mellitus. We will leave the patient n.p.o. for right now, place him on D5 normal saline and place him on a sliding scale insulin. Further recommendations to follow. Job ID: [id number]
[2019-01-23 01:09] LABS: CKMB 4.2 ng/mL (0-6.6)
[2019-01-23 04:34] LABS: #Basophils 0.1 thou/uL (0.0-0.2); #Eosinphils 0.2 thou/uL (0.0-0.7); #Lymphocytes 4.4 thou/uL (1.20-3.40); #Monocytes 1.3 thou/uL (0.11-0.59); %Basophils 0.7 % (0.0-1.0); %Monocytes 11.8 % (0.0-10.0); %Neutrophils 45.6 % (42.0-75.0); Hemoglobin 12.2 g/dL (14.0-18.0); Mean Corpuscular HGB CONC 33.3 g/dL (32.0-36.0); Mean Corpuscular Hemoglobin 32.3 pg (27.0-31.0); Mean Platelet Volume 8.2 fL (7.4-10.4); Platelet Count 226 thou/uL (130-400); RBC Distribution Width 12.7 % (11.5-14.5); Red Blood Cell (RBC) Count 3.77 mill/uL (4.70-6.10)
[2019-01-23 04:52] LABS: Anion Gap 8 mmol/L (10-20); BUN (Urea Nitrogen) 24 mg/dL (8.4-25.7); Calc. Creatinine Clearance 41 mL/min (70-130); Carbon Dioxide 25 mmol/L (23-31); Chloride 110 mmol/L (98-107); Estimated GFR-MDRD 41; Glucose 179 mg/dL (83-110); Potassium 4.1 mmol/L (3.5-5.1); Sodium 139 mmol/L (136-145)
[2019-01-23] MEDS: Dextrose 5 % And 0.9 % NaCl 1,000 ML IV SCH (09:19)
[2019-01-23] MEDS: Famotidine/PF 20 mg/2ml Vial SLOW IVP SCH (09:19)
[2019-01-23 11:42] VITALS: TEMP 98.2
--- NOTE | 2019-01-23 12:18 | PDOC.HOSPP ---
- Subjective Encounter Date: 01/23/19 Encounter Time: 12:16 Subjective: Mr. Brownlee was seen today in follow-up of syncope. He does not have any complaints. - Objective Vital Signs & Weight: Vital Signs (12 hours) Temp Pulse Resp BP BP Pulse Ox 01/23/19 11:24 98.2 F 71 16 122/58 L 98 01/23/19 07:34 97.5 F L 79 18 131/60 97 01/23/19 04:05 98.0 F 76 16 113/61 94 L Weight Weight 173 lb I&O: 01/22/19 01/23/19 01/24/19 06:59 06:59 06:59 Intake Total 1527 Balance 1527 Result Diagrams: 01/23/19 04:13 01/23/19 04:13 Additional Labs: Accuchecks 01/23/19 01/23/19 06:22 00:20 POC Glucose 159 H 207 H Hospitalist ROS - Medication Medications: Active Medications Generic Name Dose Route Start Last Admin Trade Name Neilq PRN Reason Stop Dose Admin Famotidine 20 mg 01/22/19 21:00 01/23/19 09:19 Pepcid SLOW IVP 20 mg Q12HR KESHAWN Administration Dextrose/Sodium Chloride 1,000 mls @ 75 mls/hr 01/22/19 18:30 01/23/19 09:19 D5 0.9% Ns IV 1,000 mls .[id number] KESHAWN Administration - Exam Eye: PERRL Heart: RRR, no murmur, no gallops, no rubs, normal peripheral pulses Respiratory: CTAB, no wheezes, no rales, no ronchi, normal chest expansion, no tachypnea, normal percussion Gastrointestinal: soft, non-tender, non-distended, normal bowel sounds, no palpable masses, no hepatomegaly Extremities: no cyanosis, no edema Hosp A/P (1) Syncope Code(s): R55 - SYNCOPE AND COLLAPSE Status: Acute (2) Coronary artery disease Code(s): I25.10 - ATHSCL HEART DISEASE OF [place] CORONARY ARTERY W/O ANG PCTRS Status: Chronic (3) Diabetes type 2, controlled Code(s): E11.9 - TYPE 2 DIABETES MELLITUS WITHOUT COMPLICATIONS Status: Chronic (4) Hypertension Code(s): I10 - ESSENTIAL (PRIMARY) HYPERTENSION Status: Chronic - Plan * HTN- blood pressure is better * Syncope- I suspect due to volume depletion * Cardiac enzymes were negative * Stable for discharge home.
[2019-01-23 12:24] VITALS: BP 129/60
--- NOTE | 2019-01-24 04:54 | DIS ---
DATE OF ADMISSION: 01/22/2019 DATE OF DISCHARGE: 01/23/2019 PRIMARY CARE PHYSICIAN: Dajuan Montalvo MD DISCHARGE DISPOSITION: Home. PRIMARY DISCHARGE DIAGNOSES: 1. Syncope. 2. Dehydration. 3. Chronic systolic heart failure. 4. Hypertension. 5. Diabetes mellitus, type 2. 6. History of pancreatic cancer. DISCHARGE MEDICATIONS: Include 1. Entresto 24/26 one tablet twice daily. 2. Multaq 400 mg p.o. twice daily. 3. Nitrostat 0.4 sublingual p.r.n. 4. Glipizide 5 mg p.o. daily. 5. Lipitor 20 mg at bedtime. 6. Eliquis 5 mg p.o. twice daily. 7. Alprazolam 0.5 mg twice a day. CODE STATUS: Full code. ALLERGIES: AMIODARONE. IMAGING DONE DURING THE HOSPITAL STAY: The patient had a CT scan of the brain showing no acute intracranial abnormalities. HOSPITAL COURSE: Mr. Brownlee is a pleasant 78-year-old gentleman, who presented to the emergency room after having a syncopal episode. This was after he had completed a bowel prep for colonoscopy. When he was evaluated in the ER, he was found to initially be hypotensive. He was hydrated and his symptoms resolved. His blood pressure rebound. He was seen by Gastroenterology to offer doing a colonoscopy while he was here in the hospital since he had undergone the prep and had been off his Eliquis for the atrial fibrillation. However, the patient declined when he learned that he would have to take some additional GoLYTELY. The following day, the patient was clinically stable, completely asymptomatic. Troponins were negative and he was subsequently discharged home to have close outpatient followup. Job ID: [id number]
[2019-01-24] MEDS ORDERED: Famotidine/PF 20 mg/2ml Vial SLOW IVP SCH (09:00)
== END 2019-01-23 12:56 | disposition home or self-care (01) ==
LOC: ERS 10:04 → ERHOLD 14:17 → 2SW 18:18
PROVIDERS: ADMIT Internal Medicine; ATTEND Internal Medicine
DX: R55 Syncope and collapse (principal); E86.0 Dehydration; I13.0 Hypertensive heart and chronic kidney disease with heart failure and stage 1 through stage 4 chronic kidney disease, or unspecified chronic kidney disease; E11.22 Type 2 diabetes mellitus with diabetic chronic kidney disease; N18.9 Chronic kidney disease, unspecified; I50.22 Chronic systolic (congestive) heart failure; I48.91 Unspecified atrial fibrillation; I49.5 Sick sinus syndrome; I25.10 Atherosclerotic heart disease of native coronary artery without angina pectoris; S01.01XA Laceration without foreign body of scalp, initial encounter; Z85.07 Personal history of malignant neoplasm of pancreas; Z79.01 Long term (current) use of anticoagulants; Z79.84 Long term (current) use of oral hypoglycemic drugs; Z79.899 Other long term (current) drug therapy; Z88.8 Allergy status to other drugs, medicaments and biological substances; Z95.810 Presence of automatic (implantable) cardiac defibrillator; Z90.411 Acquired partial absence of pancreas; W19.XXXA Unspecified fall, initial encounter
CPT/HCPCS: 12002; 70450; 71045; 80048; 80053; 82553 ×2; 82962; 83735; 84484 ×3; 85025 ×2; 85610; 85730; 93005; 96361 ×2; 96374; 96376; 99285; G0378 ×3; 36415; 36416; 96360; G0390; S0028